=== PATIENT | male | born 1955 | race American Indian/Alaskan Native ===

== ENCOUNTER 2021-05-05 15:37 | Inpatient (IN) | payer MEDICAID ==
--- NOTE | 2021-05-05 17:40 | Event Note ---
ED Screening Note Date of service: 05/05/21 Time: 17:40 ED Screening Note: This initial assessment/diagnostic orders/clinical plan/treatment(s) is/are subject to change based on patients health status, clinical progression and re- assessment by fellow clinical providers in the ED. Further treatment and workup at subsequent clinical providers discretion. Patient/guardian urged not to elope from the ED as their condition may be serious if not clinically assessed and managed. Initial orders include: 65-year-old male complaining of pain and swelling to the right groin x4 days he denies fever he denies chills but he states that the pain has just been getting increasingly worst. Right groin with with pus draining, right perineal swelling and erythema right inner thigh with erythema and tenderness. He has a past medical history of [id number] diabetes and brain aneurysm he states he has noticed decreased urination over the last 4 days. labs ordered patient will need further evaluation and treatment
[2021-05-05 18:16] LABS: Hematocrit 42.5 % (35.5-45.6); Hemoglobin 14.5 gm/dl (11.8-15.2); Mean Corpuscular HGB Conc 34 % (32-34); Mean Corpuscular Volume 93 fl (84-94); Platelet Count 294 K/mm3 (140-440); Red Blood Count 4.58 M/mm3 (3.65-5.03); Red Cell Distribution Width 12.9 % (13.2-15.2)
[2021-05-05 18:34] LABS: Alanine Aminotransferase 44 units/L (7-56); Albumin 4.1 g/dL (3.9-5); Blood Urea Nitrogen 10 mg/dL (9-20); Hemolysis Index 4
[2021-05-05 18:47] LABS: BUN/Creatinine Ratio 14
[2021-05-05] MEDS ORDERED: SODIUM CHLORIDE 0.9% 1000 ML 1,000 ML IV ONE (18:50)
[2021-05-05] MEDS ORDERED: VANCOMYCIN PHARMACY TO DOSE IV SCH (19:00)
--- NOTE | 2021-05-05 19:06 | Emergency Department Report ---
<BRODY HOWARD - Last Filed: 05/05/21 19:03> - General Chief complaint: Skin/Abscess/Foreign Body Stated complaint: BOIL Time Seen by Provider: 05/05/21 18:16 Source: patient Mode of arrival: Ambulatory Limitations: No Limitations, Other - History of Present Illness Initial comments: Patient is a 65-year-old F [place] male with past medical history of diabetes who is presenting with swelling to his right groin. States that the area of of the right groin has been progressively worsening with swelling for the past 4 days. Denies fever nausea vomiting diarrhea or abdominal pain. Patient states he did feel a leaking sensation on the right inguinal area and down along his scrotum yesterday. Patient has no actual pain of his scrotum or any penile discharge. - Related Data Allergies Allergy/AdvReac Type Severity Reaction Status Date / Time No Known Allergies Allergy Verified 05/05/21 18:38 Abscess Boil HPI - HPI Chief Complaint: Skin/Abscess/Foreign Body Stated Complaint: BOIL Time Seen by Provider: 05/05/21 18:16 Allergies/Adverse Reactions: Allergies Allergy/AdvReac Type Severity Reaction Status Date / Time No Known Allergies Allergy Verified 05/05/21 18:38 ED Review of Systems Comment: All other systems reviewed and negative ED Past Medical Hx - Past Medical History Hx Diabetes: Yes Additional medical history: BRAIN ANEURRSYM - Surgical History Additional Surgical History: BRAIN/ HERNIA - Social History Smoking Status: Never Smoker Substance Use Type: None ED Physical Exam - General Limitations: No Limitations, Other General appearance: alert, in no apparent distress - Head Head exam: Present: atraumatic, normocephalic - Eye Eye exam: Present: normal appearance, PERRL, EOMI - ENT ENT exam: Present: mucous membranes moist - Neck Neck exam: Present: normal inspection - Respiratory Respiratory exam: Present: normal lung sounds bilaterally. Absent: respiratory distress, wheezes, rales, rhonchi - Cardiovascular Cardiovascular Exam: Present: regular rate, normal rhythm. Absent: systolic murmur, diastolic murmur, rubs, gallop - GI/Abdominal GI/Abdominal exam: Present: soft, normal bowel sounds. Absent: distended, tenderness, guarding, rebound - Rectal Rectal exam: Present: deferred - Expanded Exam Expanded Male exam: Absent: penile swelling image: 1 - Area of warmth induration and swelling. No obvious areas of fluctuance 2 - Along the right border of the scrotum along the thigh the patient does have some tenderness but no erythema - Extremities Exam Extremities exam: Present: normal inspection - Back Exam Back exam: Present: normal inspection - Neurological Exam Neurological exam: Present: alert, oriented X3 - Psychiatric Psychiatric exam: Present: normal affect, normal mood - Skin Skin exam: Present: warm, dry, intact, normal color. Absent: rash ED Medical Decision Making - Lab Data Result diagrams: 05/05/21 17:56 05/05/21 17:56 ED Disposition Clinical Impression: Cellulitis of scrotum, Abscess or cellulitis of groin Disposition: OP ADMIT IP TO THIS HOSP Condition: Stable Print Language: ANGUILLAN <SITA MATUTE - Last Filed: 05/05/21 21:47> ED Review of Systems ROS: Stated complaint: BOIL Other details as noted in HPI ED Course Vital Signs 05/05/21 05/05/21 05/05/21 15:37 19:38 19:47 Temperature 99.5 F 98.3 F Pulse Rate 96 H 84 Respiratory 20 16 16 Rate Blood Pressure 171/87 Blood Pressure 154/86 [Right] O2 Sat by Pulse 98 98 Oximetry 05/05/21 20:17 Temperature Pulse Rate Respiratory 16 Rate Blood Pressure Blood Pressure [Right] O2 Sat by Pulse Oximetry ED Medical Decision Making - Lab Data Result diagrams: 05/05/21 17:56 05/05/21 17:56 - Radiology Data Radiology results: report reviewed, image reviewed [facility] [address] [place] [address] Cat Scan Report Signed Patient: XANDER RUSH JR MR#: [id number] : 1955 Acct:[id number] Age/Sex: 65 / M ADM Date: 05/05/21 Loc: ED Attending Dr: Ordering Physician: BRODY HOWARD MD Date of Service: 05/05/21 Procedure(s): CT pelvis w con Accession Number(s): [id number] cc: BRODY HOWARD MD CT PELVIC WITH CONTRAST INDICATION: Right groin and possible scrotal/perineal abscess CONTRAST: 100 cc Omnipaque 300 IV COMPARISON: None available. All CT scans at this location are performed using CT dose reduction for ALARA by means of automated exposure control. FINDINGS: No intrapelvic masses or abnormal fluid collections are seen. No free fluid is seen within the pelvis. Urinary bladder, prostate, and seminal vesicles appear within normal limits. No obvious bowel abnormalities are seen. Prominent inflammatory change is seen extending from the upper right scrotal area proximally in the right peritoneum which includes significant soft tissue gas. I do not see a defined fluid collection to strongly suggest an abscess. The scrotum is not fully visualized but there appears to be a small right hydrocele. Gas is not seen in the scrotal though the scrotal soft tissues of an scrotal wall appear mildly edematous. The inflammatory process extends proximally lateral to the spermatic cord into the right inguinal area in its lower most portion along the musculature. There may be involvement of the muscular fascia with inflammation but I do not see obvious intramuscular inflammation or collection. No extension of this process into the true pelvis is identified. IMPRESSION: Prominent inflammatory process/cellulitis involving the upper right scrotum and lower right inguinal area as above without extension into the true pelvis. I do not see a defined abscess but this process may include anaerobic and/or necrotizing infection given the significant amount of soft tissue gas present. Signer Name: Car Velarde MD Signed: 05/05/2021 7:46 PM Workstation Name: [id number] Transcribed By: GJ Dictated By: Car Velarde MD Electronically Authenticated By: Car Velarde MD Signed Date/Time: 05/05/211945 DD/ 41 TD/TT: - Medical Decision Making I seen care of the patient from Dr. Brody Howard at shift change at 2000 hrs. The patient had presented with a complaint of right inguinal area pain and swelling for 4 days with purulent discharge. In the ED, patient is alert and oriented x3 and is not in any distress but appears to be in pain. Patient was treated in the ED for pain and also started on vancomycin and Zosyn as well as normal saline IV bolus in the ED. Lab test results were reviewed and showed leukocytosis of 23,900. Lactic acid is negative and the rest of the lab test results are nonactionable. The pelvis CT scan with contrast showed prominent inflammatory process/cellulitis involving the upper right scrotum and lower right inguinal area as above without extension into the true pelvis. I do not see a defined abscess but this process may include anaerobic and/or necrotizing infection given the significant amount of soft tissue gas present. The patient case was discussed with the hospitalist physician on-call Dr. Schwartz who admitted the patient to the hospital for further evaluation and antibiotics administration. - Differential Diagnosis Cellulitis; abscess; necrotizing fasciitis; folliculitis; hidradenitis Critical care attestation.: If time is entered above; I have spent that time in minutes in the direct care of this critically ill patient, excluding procedure time. ED Disposition Is pt being admited?: No Does the pt Need Aspirin: No Time of Disposition: 21:47
[2021-05-05] MEDS ORDERED: VANCOMYCIN 2,000 MG in SODIUM CHLORIDE 0.9% 500 ML 500 ML IV ONE (19:20)
[2021-05-05] MEDS ORDERED: KETOROLAC 30 MG/1 ML INJ IV ONE (19:23)
[2021-05-05] MEDS ORDERED: PIPERACIL/TAZOBACTA 4.5/NS 100 4.5 GM/100 ML VIAL IV ONE (19:30)
--- NOTE | 2021-05-05 19:51 | Cat Scan Report ---
CT PELVIC WITH CONTRAST INDICATION: Right groin and possible scrotal/perineal abscess CONTRAST: 100 cc Omnipaque 300 IV COMPARISON: None available. All CT scans at this location are performed using CT dose reduction for ALARA by means of automated e xposure control. FINDINGS: No intrapelvic masses or abnormal fluid collections are seen. No free fluid is seen within the pelvis. Urinary bladder, prostate, and seminal vesicles appear within normal limits. No obvious b owel abnormalities are seen. Prominent inflammatory change is seen extending from the upper right scrotal area proximally in the r ight peritoneum which includes significant soft tissue gas. I do not see a defined fluid collection t o strongly suggest an abscess. The scrotum is not fully visualized but there appears to be a small ri ght hydrocele. Gas is not seen in the scrotal though the scrotal soft tissues of an scrotal wall appe ar mildly edematous. The inflammatory process extends proximally lateral to the spermatic cord into t he right inguinal area in its lower most portion along the musculature. There may be involvement of t he muscular fascia with inflammation but I do not see obvious intramuscular inflammation or collectio n. No extension of this process into the true pelvis is identified. IMPRESSION: Prominent inflammatory process/cellulitis involving the upper right scrotum and lower rig ht inguinal area as above without extension into the true pelvis. I do not see a defined abscess but this process may include anaerobic and/or necrotizing infection given the significant amount of soft tissue gas present. Signer Name: Car Velarde MD Signed: 05/05/2021 7:46 PM Workstation Name: [id number]
[2021-05-05 20:07] LABS: Bilirubin,Urine NEG (Negative); Blood,Urine MOD (Negative); Color,Urine Yellow (Yellow); Mucus,Urine FEW /HPF
[2021-05-05] MEDS ORDERED: ONDANSETRON 4 MG/2 ML INJ IV PRN (21:46)
[2021-05-05] MEDS ORDERED: MAGNESIUM HYDROXIDE (MOM) ORAL LIQD UDC PO PRN (21:46)
[2021-05-05] MEDS ORDERED: ACETAMINOPHEN 325 MG TAB PO PRN ×2 (21:46→21:48)
[2021-05-05] MEDS ORDERED: DEXTROSE 50% IN WATER (25GM) 50 ML SYRINGE IV PRN (21:46)
--- NOTE | 2021-05-05 21:54 | History and Physical Report ---
History of Present Illness Date of examination: 05/05/21 Date of admission: 05/05/2021 Chief complaint: Right Inguinal Swelling History of present illness: 55-year-old -[place]ag[place] male with known history of diabetes mellitus presenting to the emergency room today complaining of right inguinal swelling. Swelling has been ongoing for the past 4 days and has been getting progressive. He denies any fever or chills, no chest pain or shortness of breath, no nausea vomiting, no abdominal pain, no hematuria or dysuria. Denies any injury or wound to the right groin. Denies any obvious drainage. Denies any scrotal swelling or pain and there is no penile discharge. Work-up in the emergency room today reveals leukocytosis of 24 and the rest of the lab is unremarkable. Pelvic CT reveals inflammatory process/cellulitis involving the right scrotum and right lower inguinal area. Patient is being admitted with cellulitis of the right inguinal region. Past History Past Medical History: diabetes Past Surgical History: Other (Brain aneurysm) Social history: no significant social history Family history: no significant family history Medications and Allergies Allergies Allergy/AdvReac Type Severity Reaction Status Date / Time No Known Allergies Allergy Verified 05/05/21 18:38 Home Medications Medication Instructions Recorded Confirmed Last Taken Type Acetaminophen [Tylenol] 650 mg PO Q6H PRN 05/06/21 05/06/21 05/05/21 History Famotidine [Pepcid] 20 mg PO DAILY 05/06/21 05/06/21 05/05/21 History amLODIPine 5 mg PO DAILY 05/06/21 05/06/21 05/05/21 History levETIRAcetam [Keppra TAB] 500 mg PO BID 05/06/21 05/06/21 05/05/21 History metFORMIN [Glucophage] 500 mg PO BID 05/06/21 05/06/21 05/05/21 History Active Meds: Active Medications Vancomycin HCl 2,000 mg/ (Sodium Chloride) 540 mls @ 250 mls/hr IV Q12H SUNDAR Review of Systems Constitutional: no fever, no chills Ears, nose, mouth and throat: no nasal congestion, no sore throat Cardiovascular: no chest pain, no palpitations Respiratory: no cough, no shortness of breath Gastrointestinal: no abdominal pain, no nausea, no vomiting, no diarrhea Genitourinary Male: no dysuria, no hematuria, no flank pain Musculoskeletal: no neck pain, no low back pain Integumentary: no rash, no pruritis Neurological: no headaches, no confusion Psychiatric: no anxiety, no depression Endocrine: no polydipsia, no polyuria, no nocturia Exam - Constitutional Vitals: Temp Pulse Resp BP Pulse Ox 98.3 F 84 16 154/86 98 05/05/21 19:38 05/05/21 19:38 05/05/21 20:17 05/05/21 19:38 05/05/21 19:38 General appearance: Present: no acute distress, well-nourished - EENT Eyes: Present: PERRL, EOM intact. Absent: scleral icterus ENT: hearing intact, clear oral mucosa, dentition normal - Neck Neck: Present: supple, normal ROM - Respiratory Respiratory effort: normal Respiratory: bilateral: CTA - Cardiovascular Rhythm: regular Heart Sounds: Present: S1 & S2. Absent: gallop, systolic murmur, diastolic murmur, rub, click - Extremities Extremities: no ischemia, pulses intact, pulses symmetrical, No edema, normal temperature, normal color, Full ROM Peripheral Pulses: within normal limits - Abdominal General gastrointestinal: Present: soft, non-tender, non-distended, normal bowel sounds. Absent: mass - Integumentary Integumentary: Present: clear, warm, dry. Absent: rash - Musculoskeletal Musculoskeletal: strength equal bilaterally - Psychiatric Psychiatric: appropriate mood/affect, intact judgment & insight, memory intact, cooperative - Neurologic Neurologic: CNII-XII intact, no focal deficits, moves all extremities Results - Labs CBC & Chem 7: 05/06/21 07:53 05/06/21 07:53 Labs: Abnormal lab results 05/05/21 05/05/21 05/05/21 Range/Units 17:56 17:56 Unknown WBC 23.9 H (4.5-11.0) K/mm3 RDW 12.9 L (13.2-15.2) % Chloride 95.4 L (98-107) mmol/L Creatinine 0.7 L (0.8-1.3) mg/dL Glucose 152 H (75-100) mg/dL Alkaline Phosphatase 139 H (35-129) units/L Ur Specific [place] 1.035 H (1.003-1.030) Assessment and Plan - Patient Problems (1) Abscess or cellulitis of groin Current Visit: Yes Status: Acute Plan to address problem: Patient placed on empiric IV antibiotics. Will await surgical evaluation and wound care. (2) Diabetes mellitus Current Visit: Yes Status: Acute Plan to address problem: We will monitor Accu-Cheks closely. Patient placed on sliding scale insulin. (3) DVT prophylaxis Current Visit: Yes Status: Acute Plan to address problem: Patient placed on subcutaneous heparin. (4) Full code status Current Visit: Yes Status: Acute Plan to address problem: Patient is full code.
[2021-05-05] MEDS: HEPARIN 5,000 UNIT/1 ML VIAL SUB-Q SCH (22:26)
[2021-05-05] MEDS: INSULIN REGULAR, HUMAN 100 UNITS/1 ML SUB-Q SCH (22:31)
[2021-05-06] MEDS ORDERED: VANCOMYCIN PHARMACY TO DOSE IV SCH (01:00)
[2021-05-06] MEDS: PIPERACIL/TAZOBACTA 4.5/NS 100 4.5 GM/100 ML VIAL IV SCH ×3 (05:26→21:22)
[2021-05-06] MEDS: HEPARIN 5,000 UNIT/1 ML VIAL SUB-Q SCH ×3 (05:27→21:22)
[2021-05-06] MEDS: MORPHINE 4 MG/1 ML INJ IV PRN (06:28)
[2021-05-06] MEDS: SODIUM CHLORIDE 0.9% 1000 ML 1,000 ML IV SCH ×2 (06:33→21:23)
[2021-05-06] MEDS ORDERED: VANCOMYCIN 2,000 MG in SODIUM CHLORIDE 0.9% 500 ML 500 ML IV SCH (08:00)
[2021-05-06 08:32] LABS: Basophils % (Auto) 0.2 % (0.0-1.8); Eosinophils # (Auto) 0.2 K/mm3 (0.0-0.4); Hematocrit 39.1 % (35.5-45.6); Hemoglobin 13.4 gm/dl (11.8-15.2); Lymphocytes # (Auto) 1.9 K/mm3 (1.2-5.4); Lymphocytes % (Auto) 10.4 % (13.4-35.0); Mean Corpuscular HGB Conc 34 % (32-34); Mean Corpuscular Volume 93 fl (84-94); Monocytes # (Auto) 2.4 K/mm3 (0.0-0.8); Monocytes % (Auto) 13.1 % (0.0-7.3); Platelet Count 268 K/mm3 (140-440); Red Blood Count 4.22 M/mm3 (3.65-5.03)
[2021-05-06 08:36] LABS: Blood Urea Nitrogen 8 mg/dL (9-20); Calcium 9.2 mg/dL (8.4-10.2); Hemolysis Index 0
[2021-05-06 08:42] LABS: BUN/Creatinine Ratio 16; INR 0.93 (0.87-1.13)
[2021-05-06] MEDS: INSULIN REGULAR, HUMAN 100 UNITS/1 ML SUB-Q SCH ×4 (10:03→21:50)
--- NOTE | 2021-05-06 12:57 | Progress Note ---
Assessment and Plan Assessment and plan: 55-year-old -[place] male with known history of diabetes mellitus presenting to the emergency room today complaining of right inguinal swelling. Swelling has been ongoing for the past 4 days and has been getting progressive. He denies any fever or chills, no chest pain or shortness of breath, no nausea vomiting, no abdominal pain, no hematuria or dysuria. Denies any injury or wound to the right groin. Denies any obvious drainage. Denies any scrotal swelling or pain and there is no penile discharge. Work-up in the emergency room today reveals leukocytosis of 24 and the rest of the lab is unremarkable. Pelvic CT reveals inflammatory process/cellulitis involving the right scrotum and right lower inguinal area. Patient is being admitted with cellulitis of the right inguinal region. (1) Abscess or cellulitis of groin ?Narcotizing fasciitis Current Visit: Yes Status: Acute (2) Diabetes mellitus Current Visit: Yes Status: Acute (3) Hypokalemia (5) DVT prophylaxis Current Visit: Yes Status: Acute (6) Full code status Current Visit: Yes Status: Acute Plan: Continue supportive care, wound care consult. continue abx, awaiting surgical eval. History Interval history: Patient seen and examined resting comfortably no new complaints at this time. Hospitalist Physical - Physical exam Narrative exam: VITAL SIGNS: Reviewed. GENERAL: The patient appears normally developed, morbidly obese vital signs as documented. HEAD: No signs of head trauma. EYES: Pupils are equal. Extraocular motions intact. EARS: Hearing grossly intact. MOUTH: Oropharynx is normal. NECK: No adenopathy, no JVD. CHEST: Chest with clear breath sounds bilaterally. No wheezes, rales, or rhonchi. CARDIAC: Regular rate and rhythm. S1 and S2, without murmurs, gallops, or rubs. VASCULAR: No Edema. Peripheral pulses normal and equal in all extremities. ABDOMEN: Soft, non tender and non distended. No rebound or guarding, and no masses palpated. Bowel Sounds normal. MUSCULOSKELETAL: Good range of motion of all major joints. Extremities without clubbing, cyanosis or edema. : Area of warmth induration and swelling. No obvious areas of fluctuance, Along the right border of the scrotum along the thigh the patient does have some tenderness but no erythema. Some dressing in place NEUROLOGIC EXAM: Alert and oriented x 3 No focal sensory or strength deficits. Speech normal. Follows commands. PSYCHIATRIC: Mood normal. SKIN: Indurated area in the groin detail exam as documented in skin assessment - Constitutional Vitals: Temp Pulse Resp BP Pulse Ox 97.6 F 91 H 18 170/82 92 05/06/21 03:52 05/06/21 03:52 05/06/21 03:52 05/06/21 03:52 05/06/21 03:52 General appearance: Present: no acute distress, well-nourished Results - Labs CBC & Chem 7: 05/06/21 07:53 05/06/21 07:53 Labs: Laboratory Last Values WBC 18.2 K/mm3 (4.5-11.0) H 05/06/21 07:53 RBC 4.22 M/mm3 (3.65-5.03) 05/06/21 07:53 Hgb 13.4 gm/dl (11.8-15.2) 05/06/21 07:53 Hct 39.1 % (35.5-45.6) 05/06/21 07:53 MCV 93 fl (84-94) 05/06/21 07:53 MCH 32 pg (28-32) 05/06/21 07:53 MCHC 34 % (32-34) 05/06/21 07:53 RDW 13.0 % (13.2-15.2) L 05/06/21 07:53 Plt Count 268 K/mm3 (140-440) 05/06/21 07:53 Lymph % (Auto) 10.4 % (13.4-35.0) L 05/06/21 07:53 [place] % (Auto) 13.1 % (0.0-7.3) H 05/06/21 07:53 Eos % (Auto) 1.0 % (0.0-4.3) 05/06/21 07:53 Baso % (Auto) 0.2 % (0.0-1.8) 05/06/21 07:53 Lymph # (Auto) 1.9 K/mm3 (1.2-5.4) 05/06/21 07:53 [place] # (Auto) 2.4 K/mm3 (0.0-0.8) H 05/06/21 07:53 Eos # (Auto) 0.2 K/mm3 (0.0-0.4) 05/06/21 07:53 Baso # (Auto) 0.0 K/mm3 (0.0-0.1) 05/06/21 07:53 Seg Neutrophils % 75.3 % (40.0-70.0) H 05/06/21 07:53 Seg Neutrophils # 13.7 K/mm3 (1.8-7.7) H 05/06/21 07:53 PT 13.1 Sec. (12.2-14.9) 05/06/21 07:53 INR 0.93 (0.87-1.13) 05/06/21 07:53 Sodium 141 mmol/L (137-145) 05/06/21 07:53 Potassium 3.1 mmol/L (3.6-5.0) L 05/06/21 07:53 Chloride 100.7 mmol/L (98-107) 05/06/21 07:53 Carbon Dioxide 30 mmol/L (22-30) 05/06/21 07:53 Anion Gap 13 mmol/L 05/06/21 07:53 BUN 8 mg/dL (9-20) L 05/06/21 07:53 Creatinine 0.5 mg/dL (0.8-1.3) L 05/06/21 07:53 Estimated GFR > 60 ml/min 05/06/21 07:53 BUN/Creatinine Ratio 16 % 05/06/21 07:53 Glucose 147 mg/dL (75-100) H 05/06/21 07:53 POC Glucose 163 mg/dL (70-105) H 05/06/21 11:47 Lactic Acid 1.20 mmol/L (0.7-2.0) 05/05/21 21:27 Calcium 9.2 mg/dL (8.4-10.2) 05/06/21 07:53 Total Bilirubin 0.50 mg/dL (0.1-1.2) 05/05/21 17:56 AST 31 units/L (5-40) 05/05/21 17:56 ALT 44 units/L (7-56) 05/05/21 17:56 Alkaline Phosphatase 139 units/L (35-129) H 05/05/21 17:56 Total Protein 7.4 g/dL (6.3-8.2) 05/05/21 17:56 Albumin 4.1 g/dL (3.9-5) 05/05/21 17:56 Albumin/Globulin Ratio 1.2 % 05/05/21 17:56 Urine Color Yellow (Yellow) 05/05/21 Unknown Urine Turbidity Clear (Clear) 05/05/21 Unknown Urine pH 5.0 (5.0-7.0) 05/05/21 Unknown Ur Specific [place] 1.035 (1.003-1.030) H 05/05/21 Unknown Urine Protein 100 mg/dl mg/dL (Negative) 05/05/21 Unknown Urine Glucose (UA) Neg mg/dL (Negative) 05/05/21 Unknown Urine Ketones 20 mg/dL (Negative) 05/05/21 Unknown Urine Blood Mod (Negative) 05/05/21 Unknown Urine Nitrite Neg (Negative) 05/05/21 Unknown Urine Bilirubin Neg (Negative) 05/05/21 Unknown Urine Urobilinogen 2.0 mg/dL (<2.0) 05/05/21 Unknown Ur Leukocyte Esterase Neg (Negative) 05/05/21 Unknown Urine WBC (Auto) 1.0 /HPF (0.0-6.0) 05/05/21 Unknown Urine RBC (Auto) 2.0 /HPF (0.0-6.0) 05/05/21 Unknown Urine Mucus Few /HPF 05/05/21 Unknown Microbiology: Microbiology 05/05/21 18:04 Peripheral/Venous Blood Culture - Preliminary Culture in Progress 05/05/21 17:56 Peripheral/Venous Blood Culture - Preliminary Culture in Progress Stokes/IV: Voiding Method Urinal Active Medications - Current Medications Current Medications: Generic Name Dose Route Start Last Admin Trade Name Freq PRN Reason Stop Dose Admin Acetaminophen 650 mg 05/05/21 21:48 Acetaminophen 325 Mg Tab PO Q4H PRN Pain MILD(1-3)/Fever >100.5/MYERS Dextrose 0 ml 05/05/21 21:46 Dextrose 50% In Water (25gm) 50 Ml Syringe IV Q30MIN PRN Hypoglycemia Protocol Heparin Sodium (Porcine) 5,000 unit 05/05/21 22:00 05/06/21 05:27 Heparin 5,000 Unit/1 Ml Vial SUB-Q 5,000 unit Q8HR SUNDAR Administration Sodium Chloride 1,000 mls @ 125 mls/hr 05/05/21 22:00 05/06/21 06:33 Nacl 0.9% 1000 Ml IV 125 mls/hr DIRECT SUNDAR Administration Piperacillin Sod/Tazobactam Sod 4.5 gm in 100 mls @ 200 mls/hr 05/06/21 06:00 05/06/21 05:26 Zosyn/Ns 4.5gm/100ml IV 200 mls/hr Q8H SUNDAR Administration Protocol Vancomycin HCl 1,500 mg/ 530 mls @ 333.333 mls/hr 05/06/21 20:00 Sodium Chloride IV Q12H SUNDAR Insulin Human Regular 0 units 05/05/21 22:00 05/06/21 10:03 Insulin Regular, Human 100 Units/1 Ml SUB-Q 2 units ACHS SUNDAR Administration Protocol Magnesium Hydroxide 30 ml 05/05/21 21:46 Magnesium Hydroxide (Mom) Oral Liqd Udc PO Q4H PRN Constipation Morphine Sulfate 2 mg 05/05/21 21:46 Morphine 2 Mg/1 Ml Inj IV Q4H PRN Pain, Moderate (4-6) Morphine Sulfate 4 mg 05/05/21 21:46 05/06/21 06:28 Morphine 4 Mg/1 Ml Inj IV 4 mg Q4H PRN Administration Pain , Severe (7-10) Ondansetron HCl 4 mg 05/05/21 21:48 Ondansetron 4 Mg/2 Ml Inj IV Q8H PRN Nausea And Vomiting Oxycodone/Acetaminophen 1 tab 05/05/21 21:48 Oxycodone /Acetaminophen 5-325mg Tab PO Q6H PRN Pain, Moderate (4-6) Sodium Chloride 10 ml 05/05/21 22:00 05/06/21 10:04 Sodium Chloride 0.9% 10 Ml Flush Syringe IV 10 ml BID SUNDAR Administration Sodium Chloride 10 ml 05/05/21 21:48 Sodium Chloride 0.9% 10 Ml Flush Syringe IV PRN PRN LINE FLUSH Nutrition/Malnutrition Assess - Dietary Evaluation Nutrition/Malnutrition Findings: Nutrition Notes Start: 05/06/21 12:25 Freq: Status: Active Protocol: Document 05/06/21 12:26 ISAK (Rec: 05/06/21 12:32 ISAK [id number]) Nutrition Notes Need for Assessment generated from: MD Order,Education Initial or Follow up Assessment Current Diagnosis Diabetes Other Pertinent Diagnosis abscess or cellulitis of groin Current Diet Consistent CHO Labs/Tests K 3.1 BG 147 Pertinent Medications NS at 125 ml/hr Height 5 ft 9 in Weight 104.326 kg Usual Body Weight 105.9 kg [place] Body Weight (kg) 72.72 BMI 34.0 Intake Prior to Admission Fair Weight change and time frame 1.5% wt loss in 3-4 days Weight Status Obese Subjective/Other Information MD consult for diet education. Gave pt DM diet education. All questions answered. Pt eating 50% of meals due to decreased appetite for 3-4 days. Burn Absent Trauma Absent GI Symptoms None Current % PO Poor (25-49%) Minimum of two criteria No Interpretation of Weight Loss (non- 1-2% in 1 week severe) #2 Nutrition Diagnosis Food and nutrition-related knowledge deficit Etiology no prior DM education As Evidenced by Signs and Symptoms pt had questions about food with carbs #1 Nutrition Diagnosis Inadequate oral intake Etiology pain As Evidenced by Signs and Symptoms pt eating 50% of meals Is patient on ventilator? No Is Patient Ambulatory and/or Out of Bed No REE-([place]-confined to bed) 2193.252 Kcal/Kg value to use for calculation 16 Approximate Energy Requirements Using 1669 kcal/Kg Calculation Used for Recommendations Kcal/kg Additional Notes Protein: (0.8-1g/kg AdjBW: 89kg) 71-89g Fluid: 1 ml/kcal Nutrition Intervention Change Diet Order: continue Add Supplement/Snack (indicate name/kcal Glucerna BID /protein ) Provides kCal: 440 Provides Protein (gm) 20 Teaching Recipient Patient Learning Readiness Good Teaching Methods Discussion,Handout Response to Teaching Verbalize understanding Education Handouts Provided Carb Counting Label Reading Tips Barriers to Learning No Barriers RD phone number provided Yes Patient aware of follow up options Yes Goal #1 Meet at least 75% of energy and protein needs via PO and ONS Anticipated Discharge Needs: consistent CHO Follow-Up By: 05/08/21 Additional Comments FU for intakes and ONS tolerance
[2021-05-06] MEDS: MORPHINE 2 MG/1 ML INJ IV PRN (18:44)
[2021-05-06] MEDS: VANCOMYCIN 1,500 MG in SODIUM CHLORIDE 0.9% 500 ML 500 ML IV SCH (21:21)
[2021-05-06] MEDS: ONDANSETRON 4 MG/2 ML INJ IV PRN (21:51)
[2021-05-07] MEDS: HEPARIN 5,000 UNIT/1 ML VIAL SUB-Q SCH ×3 (05:50→21:18)
[2021-05-07] MEDS: PIPERACIL/TAZOBACTA 4.5/NS 100 4.5 GM/100 ML VIAL IV SCH ×2 (05:50→14:00)
[2021-05-07] MEDS: SODIUM CHLORIDE 0.9% 1000 ML 1,000 ML IV SCH ×2 (05:52→21:18)
[2021-05-07 07:17] LABS: Hematocrit 38.6 % (35.5-45.6); Hemoglobin 13.3 gm/dl (11.8-15.2); Mean Corpuscular HGB Conc 34 % (32-34); Mean Corpuscular Volume 93 fl (84-94); Platelet Count 275 K/mm3 (140-440); Red Blood Count 4.17 M/mm3 (3.65-5.03)
[2021-05-07 08:00] LABS: Blood Urea Nitrogen 5 mg/dL (9-20); Calcium 9.2 mg/dL (8.4-10.2); Hemolysis Index 8
[2021-05-07 08:07] LABS: BUN/Creatinine Ratio 10
[2021-05-07] MEDS: INSULIN REGULAR, HUMAN 100 UNITS/1 ML SUB-Q SCH ×4 (08:09→22:29)
[2021-05-07] MEDS: MORPHINE 4 MG/1 ML INJ IV PRN (08:18)
[2021-05-07] MEDS: VANCOMYCIN 1,500 MG in SODIUM CHLORIDE 0.9% 500 ML 500 ML IV SCH ×2 (08:19→20:27)
--- NOTE | 2021-05-07 08:28 | Consultation ---
History of Present Illness Consult date: 05/07/21 Chief complaint: abscess - History of present illness History of present illness: 65 yo M with hx of DM who presented to [facility] due to worsening swelling, pain, and drainage from his right groin area. Patient states it was going on for about 2 days and started off as a small boil. This subsequently got worse and came to a head and then started drainage. The area is tender. He states he may have had one fever at home. He has never had anything like this in the past. Tm 99.9. Surgery is asked to evaluate patient for right groin abscess/cellulitis. Past History Past Medical History: diabetes, other (brain aneurysm, hernia) Past Surgical History: Other (Brain aneurysm, hernia surgeryx2, tracheostomy) Social history: no significant social history Family history: no significant family history Medications and Allergies Allergies Allergy/AdvReac Type Severity Reaction Status Date / Time No Known Allergies Allergy Verified 05/05/21 18:38 Home Medications Medication Instructions Recorded Confirmed Last Taken Type Acetaminophen [Tylenol] 650 mg PO Q6H PRN 05/06/21 05/06/21 05/05/21 History Famotidine [Pepcid] 20 mg PO DAILY 05/06/21 05/06/21 05/05/21 History amLODIPine 5 mg PO DAILY 05/06/21 05/06/21 05/05/21 History levETIRAcetam [Keppra TAB] 500 mg PO BID 05/06/21 05/06/21 05/05/21 History metFORMIN [Glucophage] 500 mg PO BID 05/06/21 05/06/21 05/05/21 History Active Meds: Active Medications Acetaminophen (Acetaminophen 325 Mg Tab) 650 mg PO Q4H PRN PRN Reason: Pain MILD(1-3)/Fever >100.5/MYERS Dextrose (Dextrose 50% In Water (25gm) 50 Ml Syringe) 0 ml IV Q30MIN PRN; Michael col PRN Reason: Hypoglycemia Heparin Sodium (Porcine) (Heparin 5,000 Unit/1 Ml Vial) 5,000 unit SUB-Q Q8HR SUNDAR Last Admin: 05/07/21 05:50 Dose: 5,000 unit Documented by: Sodium Chloride (Nacl 0.9% 1000 Ml) 1,000 mls @ 125 mls/hr IV DIRECT SUNDAR Last Admin: 05/07/21 05:52 Dose: 125 mls/hr Documented by: Piperacillin Sod/Tazobactam Sod (Zosyn/Ns 4.5gm/100ml) 4.5 gm in 100 mls @ 200 mls/hr IV Q8H SUNDAR; Protocol Last Infusion: 05/07/21 07:16 Dose: Infused Documented by: Vancomycin HCl 1,500 mg/ (Sodium Chloride) 530 mls @ 333.333 mls/hr IV Q12H SUNDAR Last Admin: 05/07/21 08:19 Dose: 333.333 mls/hr Documented by: Insulin Human Regular (Insulin Regular, Human 100 Units/1 Ml) 0 units SUB-Q ACHS SUNDAR; Protocol Last Admin: 05/07/21 08:09 Dose: Not Given Documented by: Magnesium Hydroxide (Magnesium Hydroxide (Mom) Oral Liqd Udc) 30 ml PO Q4H PRN PRN Reason: Constipation Morphine Sulfate (Morphine 2 Mg/1 Ml Inj) 2 mg IV Q4H PRN PRN Reason: Pain, Moderate (4-6) Last Admin: 05/06/21 18:44 Dose: 2 mg Documented by: Morphine Sulfate (Morphine 4 Mg/1 Ml Inj) 4 mg IV Q4H PRN PRN Reason: Pain , Severe (7-10) Last Admin: 05/07/21 08:18 Dose: 4 mg Documented by: Ondansetron HCl (Ondansetron 4 Mg/2 Ml Inj) 4 mg IV Q8H PRN PRN Reason: Nausea And Vomiting Last Admin: 05/06/21 21:51 Dose: 4 mg Documented by: Oxycodone/Acetaminophen (Oxycodone /Acetaminophen 5-325mg Tab) 1 tab PO Q6H PRN PRN Reason: Pain, Moderate (4-6) Sodium Chloride (Sodium Chloride 0.9% 10 Ml Flush Syringe) 10 ml IV BID SUNDAR Last Admin: 05/06/21 21:24 Dose: 10 ml Documented by: Sodium Chloride (Sodium Chloride 0.9% 10 Ml Flush Syringe) 10 ml IV PRN PRN PRN Reason: LINE FLUSH Review of Systems All systems: negative (10 pt ROS performed and negative except for that listed in HPI) Exam Vital Signs Temp Pulse Resp BP Pulse Ox 99.5 F 96 H 20 171/87 98 05/05/21 15:37 05/05/21 15:37 05/05/21 15:37 05/05/21 15:37 05/05/21 15:37 Narrative exam: Gen; AAOx3. NAD ENT: no scleral icterus or conjunctival pallor. Well healed midline anterior neck scar CV: s1, S2+ Resp: even and unlabored Abd: soft, NT. Well healed surgical scars Ext: R groin induration with foul smelling purulent drainage on skin. Skin opening hard to identify due to patient's body habitus/pannus. Results - Labs 05/07/21 06:50 05/07/21 06:50 Abnormal lab results 05/06/21 05/06/21 05/06/21 Range/Units 07:53 07:53 08:46 WBC 18.2 H (4.5-11.0) K/mm3 RDW 13.0 L (13.2-15.2) % Lymph % (Auto) 10.4 L (13.4-35.0) % [place] % (Auto) 13.1 H (0.0-7.3) % [place] # (Auto) 2.4 H (0.0-0.8) K/mm3 Seg Neutrophils % 75.3 H (40.0-70.0) % Seg Neutrophils # 13.7 H (1.8-7.7) K/mm3 Potassium 3.1 L (3.6-5.0) mmol/L BUN 8 L (9-20) mg/dL Creatinine 0.5 L (0.8-1.3) mg/dL Glucose 147 H (75-100) mg/dL POC Glucose 167 H (70-105) mg/dL 05/06/21 05/06/21 05/06/21 Range/Units 11:47 17:26 21:33 WBC (4.5-11.0) K/mm3 RDW (13.2-15.2) % Lymph % (Auto) (13.4-35.0) % [place] % (Auto) (0.0-7.3) % [place] # (Auto) (0.0-0.8) K/mm3 Seg Neutrophils % (40.0-70.0) % Seg Neutrophils # (1.8-7.7) K/mm3 Potassium (3.6-5.0) mmol/L BUN (9-20) mg/dL Creatinine (0.8-1.3) mg/dL Glucose (75-100) mg/dL POC Glucose 163 H 194 H 156 H (70-105) mg/dL 05/07/21 05/07/21 05/07/21 Range/Units 06:50 06:50 08:01 WBC 14.8 H (4.5-11.0) K/mm3 RDW 13.0 L (13.2-15.2) % Lymph % (Auto) (13.4-35.0) % [place] % (Auto) (0.0-7.3) % [place] # (Auto) (0.0-0.8) K/mm3 Seg Neutrophils % (40.0-70.0) % Seg Neutrophils # (1.8-7.7) K/mm3 Potassium (3.6-5.0) mmol/L BUN 5 L (9-20) mg/dL Creatinine 0.5 L (0.8-1.3) mg/dL Glucose 163 H (75-100) mg/dL POC Glucose 169 H (70-105) mg/dL Diabetes panel 05/06/21 05/07/21 Range/Units 07:53 06:50 Sodium 141 138 (137-145) mmol/L Potassium 3.1 L 3.6 (3.6-5.0) mmol/L Chloride 100.7 99.6 (98-107) mmol/L Carbon Dioxide 30 28 (22-30) mmol/L BUN 8 L 5 L (9-20) mg/dL Creatinine 0.5 L 0.5 L (0.8-1.3) mg/dL Glucose 147 H 163 H (75-100) mg/dL Calcium 9.2 9.2 (8.4-10.2) mg/dL Calcium panel 05/06/21 05/07/21 Range/Units 07:53 06:50 Calcium 9.2 9.2 (8.4-10.2) mg/dL Pituitary panel 05/06/21 05/07/21 Range/Units 07:53 06:50 Sodium 141 138 (137-145) mmol/L Potassium 3.1 L 3.6 (3.6-5.0) mmol/L Chloride 100.7 99.6 (98-107) mmol/L Carbon Dioxide 30 28 (22-30) mmol/L BUN 8 L 5 L (9-20) mg/dL Creatinine 0.5 L 0.5 L (0.8-1.3) mg/dL Glucose 147 H 163 H (75-100) mg/dL Calcium 9.2 9.2 (8.4-10.2) mg/dL Adrenal panel 05/06/21 05/07/21 Range/Units 07:53 06:50 Sodium 141 138 (137-145) mmol/L Potassium 3.1 L 3.6 (3.6-5.0) mmol/L Chloride 100.7 99.6 (98-107) mmol/L Carbon Dioxide 30 28 (22-30) mmol/L BUN 8 L 5 L (9-20) mg/dL Creatinine 0.5 L 0.5 L (0.8-1.3) mg/dL Glucose 147 H 163 H (75-100) mg/dL Calcium 9.2 9.2 (8.4-10.2) mg/dL - Imaging CT scan - pelvis: report reviewed, image reviewed Assessment and Plan 65 yo M with 1. Right groin abscess with concerns for necrotizing infection on CT scan 2. Sepsis 2/2 #1 3. Diabetes Plan: 1. NPO 2. IVF 3. IV abx 4. check HbA1C. Strict glucose control 5. prn pain control 6. Will need I&D, debridement of right groin/perineum. Explained to patient that is likely a necrotizing infection which result in large open wound, multiple trips to OR, and pain. He understands and is agreeable to proceed with surgery. Consent obtained and patient to go to OR today as soon as possible. If scrotum is involved, he will need a urology consult. Thank you, please call with questions.
--- NOTE | 2021-05-07 12:00 | Progress Note ---
Assessment and Plan Assessment and plan: 55-year-old -[place] male with known history of diabetes mellitus presenting to the emergency room today complaining of right inguinal swelling. Swelling has been ongoing for the past 4 days and has been getting progressive. He denies any fever or chills, no chest pain or shortness of breath, no nausea vomiting, no abdominal pain, no hematuria or dysuria. Denies any injury or wound to the right groin. Denies any obvious drainage. Denies any scrotal swelling or pain and there is no penile discharge. Work-up in the emergency room today reveals leukocytosis of 24 and the rest of the lab is unremarkable. Pelvic CT reveals inflammatory process/cellulitis involving the right scrotum and right lower inguinal area. Patient is being admitted with cellulitis of the right inguinal region. 05/07: Patient continues to do well today. Continue antibiotics. ID consulted. Patient was seen by general surgery yesterday and part of recommendation includes "Will need I&D, debridement of right groin/perineum. Explained to patient that is likely a necrotizing infection which result in large open wound, multiple trips to OR, and pain. He understands and is agreeable to proceed with surgery. Consent obtained and patient to go to OR today as soon as possible. If scrotum is involved, he will need a urology consult." We will continue to follow and await further management plan. (1) Abscess or cellulitis of groin ?Narcotizing fasciitis Current Visit: Yes Status: Acute (2) Diabetes mellitus Current Visit: Yes Status: Acute (3) Hypokalemia (5) DVT prophylaxis Current Visit: Yes Status: Acute (6) Full code status Current Visit: Yes Status: Acute Plan: Continue supportive care, wound care consult. continue abx, History Interval history: Patient seen and examined resting comfortably no new complaints at this time. Hospitalist Physical - Physical exam Narrative exam: VITAL SIGNS: Reviewed. GENERAL: The patient appears normally developed, morbidly obese vital signs as documented. HEAD: No signs of head trauma. EYES: Pupils are equal. Extraocular motions intact. EARS: Hearing grossly intact. MOUTH: Oropharynx is normal. NECK: No adenopathy, no JVD. CHEST: Chest with clear breath sounds bilaterally. No wheezes, rales, or rhonchi. CARDIAC: Regular rate and rhythm. S1 and S2, without murmurs, gallops, or rubs. VASCULAR: No Edema. Peripheral pulses normal and equal in all extremities. ABDOMEN: Soft, non tender and non distended. No rebound or guarding, and no masses palpated. Bowel Sounds normal. MUSCULOSKELETAL: Good range of motion of all major joints. Extremities without clubbing, cyanosis or edema. : Area of warmth induration and swelling. No obvious areas of fluctuance, Along the right border of the scrotum along the thigh the patient does have some tenderness but no erythema. Some dressing in place NEUROLOGIC EXAM: Alert and oriented x 3 No focal sensory or strength deficits. Speech normal. Follows commands. PSYCHIATRIC: Mood normal. SKIN: Indurated area in the groin detail exam as documented in skin assessment - Constitutional Vitals: Temp Pulse Resp BP Pulse Ox 96.9 F L 75 16 154/81 98 05/07/21 07:17 05/07/21 07:17 05/07/21 07:17 05/07/21 07:17 05/07/21 07:17 General appearance: Present: no acute distress, well-nourished Results - Labs CBC & Chem 7: 05/07/21 06:50 05/07/21 06:50 Labs: Laboratory Last Values WBC 14.8 K/mm3 (4.5-11.0) H 05/07/21 06:50 RBC 4.17 M/mm3 (3.65-5.03) 05/07/21 06:50 Hgb 13.3 gm/dl (11.8-15.2) 05/07/21 06:50 Hct 38.6 % (35.5-45.6) 05/07/21 06:50 MCV 93 fl (84-94) 05/07/21 06:50 MCH 32 pg (28-32) 05/07/21 06:50 MCHC 34 % (32-34) 05/07/21 06:50 RDW 13.0 % (13.2-15.2) L 05/07/21 06:50 Plt Count 275 K/mm3 (140-440) 05/07/21 06:50 Lymph % (Auto) 10.4 % (13.4-35.0) L 05/06/21 07:53 [place] % (Auto) 13.1 % (0.0-7.3) H 05/06/21 07:53 Eos % (Auto) 1.0 % (0.0-4.3) 05/06/21 07:53 Baso % (Auto) 0.2 % (0.0-1.8) 05/06/21 07:53 Lymph # (Auto) 1.9 K/mm3 (1.2-5.4) 05/06/21 07:53 [place] # (Auto) 2.4 K/mm3 (0.0-0.8) H 05/06/21 07:53 Eos # (Auto) 0.2 K/mm3 (0.0-0.4) 05/06/21 07:53 Baso # (Auto) 0.0 K/mm3 (0.0-0.1) 05/06/21 07:53 Seg Neutrophils % 75.3 % (40.0-70.0) H 05/06/21 07:53 Seg Neutrophils # 13.7 K/mm3 (1.8-7.7) H 05/06/21 07:53 PT 13.1 Sec. (12.2-14.9) 05/06/21 07:53 INR 0.93 (0.87-1.13) 05/06/21 07:53 Sodium 138 mmol/L (137-145) 05/07/21 06:50 Potassium 3.6 mmol/L (3.6-5.0) 05/07/21 06:50 Chloride 99.6 mmol/L (98-107) 05/07/21 06:50 Carbon Dioxide 28 mmol/L (22-30) 05/07/21 06:50 Anion Gap 14 mmol/L 05/07/21 06:50 BUN 5 mg/dL (9-20) L 05/07/21 06:50 Creatinine 0.5 mg/dL (0.8-1.3) L 05/07/21 06:50 Estimated GFR > 60 ml/min 05/07/21 06:50 BUN/Creatinine Ratio 10 % 05/07/21 06:50 Glucose 163 mg/dL (75-100) H 05/07/21 06:50 POC Glucose 164 mg/dL (70-105) H 05/07/21 11:17 Lactic Acid 1.20 mmol/L (0.7-2.0) 05/05/21 21:27 Calcium 9.2 mg/dL (8.4-10.2) 05/07/21 06:50 Total Bilirubin 0.50 mg/dL (0.1-1.2) 05/05/21 17:56 AST 31 units/L (5-40) 05/05/21 17:56 ALT 44 units/L (7-56) 05/05/21 17:56 Alkaline Phosphatase 139 units/L (35-129) H 05/05/21 17:56 Total Protein 7.4 g/dL (6.3-8.2) 05/05/21 17:56 Albumin 4.1 g/dL (3.9-5) 05/05/21 17:56 Albumin/Globulin Ratio 1.2 % 05/05/21 17:56 Urine Color Yellow (Yellow) 05/05/21 Unknown Urine Turbidity Clear (Clear) 05/05/21 Unknown Urine pH 5.0 (5.0-7.0) 05/05/21 Unknown Ur Specific [place] 1.035 (1.003-1.030) H 05/05/21 Unknown Urine Protein 100 mg/dl mg/dL (Negative) 05/05/21 Unknown Urine Glucose (UA) Neg mg/dL (Negative) 05/05/21 Unknown Urine Ketones 20 mg/dL (Negative) 05/05/21 Unknown Urine Blood Mod (Negative) 05/05/21 Unknown Urine Nitrite Neg (Negative) 05/05/21 Unknown Urine Bilirubin Neg (Negative) 05/05/21 Unknown Urine Urobilinogen 2.0 mg/dL (<2.0) 05/05/21 Unknown Ur Leukocyte Esterase Neg (Negative) 05/05/21 Unknown Urine WBC (Auto) 1.0 /HPF (0.0-6.0) 05/05/21 Unknown Urine RBC (Auto) 2.0 /HPF (0.0-6.0) 05/05/21 Unknown Urine Mucus Few /HPF 05/05/21 Unknown Microbiology: Microbiology 05/05/21 18:04 Peripheral/Venous Blood Culture - Preliminary NO GROWTH AFTER 24 HOURS 05/05/21 17:56 Peripheral/Venous Blood Culture - Preliminary NO GROWTH AFTER 24 HOURS Stokes/IV: Voiding Method Urinal Active Medications - Current Medications Current Medications: Generic Name Dose Route Start Last Admin Trade Name Freq PRN Reason Stop Dose Admin Acetaminophen 650 mg 05/05/21 21:48 Acetaminophen 325 Mg Tab PO Q4H PRN Pain MILD(1-3)/Fever >100.5/MYERS Dextrose 0 ml 05/05/21 21:46 Dextrose 50% In Water (25gm) 50 Ml Syringe IV Q30MIN PRN Hypoglycemia Protocol Heparin Sodium (Porcine) 5,000 unit 05/05/21 22:00 05/07/21 05:50 Heparin 5,000 Unit/1 Ml Vial SUB-Q 5,000 unit Q8HR SUNDAR Administration Sodium Chloride 1,000 mls @ 125 mls/hr 05/05/21 22:00 05/07/21 05:52 Nacl 0.9% 1000 Ml IV 125 mls/hr DIRECT SUNDAR Administration Piperacillin Sod/Tazobactam Sod 4.5 gm in 100 mls @ 200 mls/hr 05/06/21 06:00 05/07/21 07:16 Zosyn/Ns 4.5gm/100ml IV Infused Q8H SUNDAR Infusion Protocol Vancomycin HCl 1,500 mg/ 530 mls @ 333.333 mls/hr 05/06/21 20:00 05/07/21 08:19 Sodium Chloride IV 333.333 mls/hr Q12H SUNDAR Administration Insulin Human Regular 0 units 05/05/21 22:00 05/07/21 08:09 Insulin Regular, Human 100 Units/1 Ml SUB-Q Not Given ACHS SUNDAR Protocol Magnesium Hydroxide 30 ml 05/05/21 21:46 Magnesium Hydroxide (Mom) Oral Liqd Udc PO Q4H PRN Constipation Morphine Sulfate 2 mg 05/05/21 21:46 05/06/21 18:44 Morphine 2 Mg/1 Ml Inj IV 2 mg Q4H PRN Administration Pain, Moderate (4-6) Morphine Sulfate 4 mg 05/05/21 21:46 05/07/21 08:18 Morphine 4 Mg/1 Ml Inj IV 4 mg Q4H PRN Administration Pain , Severe (7-10) Ondansetron HCl 4 mg 05/05/21 21:48 05/06/21 21:51 Ondansetron 4 Mg/2 Ml Inj IV 4 mg Q8H PRN Administration Nausea And Vomiting Oxycodone/Acetaminophen 1 tab 05/05/21 21:48 Oxycodone /Acetaminophen 5-325mg Tab PO Q6H PRN Pain, Moderate (4-6) Sodium Chloride 10 ml 05/05/21 22:00 05/06/21 21:24 Sodium Chloride 0.9% 10 Ml Flush Syringe IV 10 ml BID SUNDAR Administration Sodium Chloride 10 ml 05/05/21 21:48 Sodium Chloride 0.9% 10 Ml Flush Syringe IV PRN PRN LINE FLUSH Nutrition/Malnutrition Assess - Dietary Evaluation Nutrition/Malnutrition Findings: Nutrition Notes Start: 05/06/21 12:25 Freq: Status: Active Protocol: Document 05/06/21 12:26 (Rec: 05/06/21 12:32 [id number]) Nutrition Notes Need for Assessment generated from: MD Order,Education Initial or Follow up Assessment Current Diagnosis Diabetes Other Pertinent Diagnosis abscess or cellulitis of groin Current Diet Consistent CHO Labs/Tests K 3.1 BG 147 Pertinent Medications NS at 125 ml/hr Height 5 ft 9 in Weight 104.326 kg Usual Body Weight 105.9 kg [place] Body Weight (kg) 72.72 BMI 34.0 Intake Prior to Admission Fair Weight change and time frame 1.5% wt loss in 3-4 days Weight Status Obese Subjective/Other Information MD consult for diet education. Gave pt DM diet education. All questions answered. Pt eating 50% of meals due to decreased appetite for 3-4 days. Burn Absent Trauma Absent GI Symptoms None Current % PO Poor (25-49%) Minimum of two criteria No Interpretation of Weight Loss (non- 1-2% in 1 week severe) #2 Nutrition Diagnosis Food and nutrition-related knowledge deficit Etiology no prior DM education As Evidenced by Signs and Symptoms pt had questions about food with carbs #1 Nutrition Diagnosis Inadequate oral intake Etiology pain As Evidenced by Signs and Symptoms pt eating 50% of meals Is patient on ventilator? No Is Patient Ambulatory and/or Out of Bed No REE-([facility]-confined to bed) 2193.252 Kcal/Kg value to use for calculation 16 Approximate Energy Requirements Using 1669 kcal/Kg Calculation Used for Recommendations Kcal/kg Additional Notes Protein: (0.8-1g/kg AdjBW: 89kg) 71-89g Fluid: 1 ml/kcal Nutrition Intervention Change Diet Order: continue Add Supplement/Snack (indicate name/kcal Glucerna BID /protein ) Provides kCal: 440 Provides Protein (gm) 20 Teaching Recipient Patient Learning Readiness Good Teaching Methods Discussion,Handout Response to Teaching Verbalize understanding Education Handouts Provided Carb Counting Label Reading Tips Barriers to Learning No Barriers RD phone number provided Yes Patient aware of follow up options Yes Goal #1 Meet at least 75% of energy and protein needs via PO and ONS Anticipated Discharge Needs: consistent CHO Follow-Up By: 05/08/21 Additional Comments FU for intakes and ONS tolerance
[2021-05-07] MEDS ORDERED: BUPIVACAINE/PF (0.5%) 5 MG/1 ML 30 ML VIAL INFILTRATI ONE ×3 (12:53→14:48)
[2021-05-07] MEDS ORDERED: HYDROGEN PEROXIDE 118 ML SOLUTION ONE (12:53)
[2021-05-07] MEDS ORDERED: propofoL 200 MG/20 ML VIAL IV ONE (13:26)
[2021-05-07] MEDS ORDERED: HYDROmorphone 1 MG/1 ML INJ ONE (13:26)
[2021-05-07] MEDS ORDERED: LIDOCAINE MPF (2%) 20 MG/1 ML VIAL 5 ML ONE (13:26)
[2021-05-07] MEDS ORDERED: ONDANSETRON 4 MG/2 ML INJ IV PRN (14:03)
[2021-05-07] MEDS ORDERED: HYDROmorphone 1 MG/1 ML INJ IV PRN (14:03)
--- NOTE | 2021-05-07 14:04 | Anesthesia Day of Surgery ---
Anesthesia Day of Surgery - Day of Surgery Patient Examined: Yes Patient H&P Reviewed: Yes Patient is NPO: Yes
--- NOTE | 2021-05-07 14:08 | Anesthesia Consultation ---
Anesthesia Consult and Med Hx Date of service: 05/07/21 - Airway Anesthetic Teeth Evaluation: Poor, Chipped (Missing) ROM Head & Neck: Adequate Mental/Hyoid Distance: Adequate Mallampati Class: Class III Intubation Access Assessment: Probably Good - Pre-Operative Health Status ASA Pre-Surgery Classification: ASA3 Proposed Anesthetic Plan: General - Cardiovascular System Hx Hypertension: Yes - Central Nervous System Hx Neuromuscular Disorder: Yes (brain aneurysm surgery) - Endocrine Hx Non-Insulin Dependent Diabetes: Yes - Other Systems Hx Obesity: Yes
[2021-05-07] MEDS ORDERED: SODIUM HYPOCHLORITE, DAKIN'S 1/2 STRENGTH (0.25%) 473 ML TOPICAL SOLN ONE (14:15)
[2021-05-07] MEDS ORDERED: ONDANSETRON 4 MG/2 ML INJ ONE (14:28)
--- NOTE | 2021-05-07 14:31 | Post Operative Note ---
Pre-op diagnosis: abscess of right groin Post-op diagnosis: same Findings: Abscess cavity right groin measuring 5.4x2.6x3.5 cm with tunneling at the 6 oclock position Procedure: incision and drainage of right groin abscess Anesthesia: PHILA, local Surgeon: HERMES LUCIO Estimated blood loss: minimal Pathology: list (wound culture) Specimen disposition: to lab Condition: stable Disposition: PACU
--- NOTE | 2021-05-07 14:46 | Event Note ---
Date: 05/07/21 65-year-old male with diabetes, right groin abscess, just underwent drainage in the operating room. Infectious diseases has been consulted for antibiotic management. Not back from the OR yet. Recommendations: IV ceftriaxone, Flagyl, vancomycin Follow-up cultures Maintain glycemic control Full consult tomorrow Yuly Pitts MD, FACP [facility] ([facility] O: [phone] F: [phone]
[2021-05-07] MEDS ORDERED: SODIUM CHLORIDE 0.9% IRR 1,500 ML BOTTLE IR ONE ×2 (14:49)
[2021-05-07] MEDS ORDERED: SODIUM HYPOCHLORITE, DAKIN'S 1/2 STRENGTH (0.25%) 473 ML TOPICAL SOLN IR ONE (14:49)
[2021-05-07] MEDS: HYDROmorphone 1 MG/1 ML INJ IV PRN ×2 (14:50→15:00)
[2021-05-07] MEDS: metroNIDAZOLE/NS 500 MG/100 ML 500 MG/100 ML BAG IV SCH ×2 (15:22→23:21)
[2021-05-07] MEDS ORDERED: hydrALAZINE 20 MG/1 ML INJ IV PRN (15:25)
[2021-05-07] MEDS ORDERED: hydrALAZINE 20 MG/1 ML INJ ONE (15:28)
[2021-05-07] MEDS: cefTRIAXone/NS 2 GM/100 ML 2 GM/100 ML BAG IV SCH (18:02)
--- NOTE | 2021-05-07 19:55 | Post Anesthesia Evaluation ---
- Post Anesthesia Evaluation Patient Participated: Yes Airway Patent: Yes Stable Respiratory Function: Yes Nausea/Vomiting: No Temp > 96.8F: Yes Pain Manageable: Yes Adequeate Hydration: Yes Anesthesia Complications: No Block Receding Appropriately: Not Applicable Patient on Ventilator: No
[2021-05-08] MEDS: HEPARIN 5,000 UNIT/1 ML VIAL SUB-Q SCH ×3 (06:24→22:01)
[2021-05-08] MEDS: metroNIDAZOLE/NS 500 MG/100 ML 500 MG/100 ML BAG IV SCH ×3 (06:26→23:20)
[2021-05-08 07:46] LABS: Hematocrit 37.6 % (35.5-45.6); Hemoglobin 12.9 gm/dl (11.8-15.2); Mean Corpuscular HGB Conc 34 % (32-34); Mean Corpuscular Volume 93 fl (84-94); Platelet Count 319 K/mm3 (140-440); Red Blood Count 4.05 M/mm3 (3.65-5.03); Red Cell Distribution Width 13.3 % (13.2-15.2)
[2021-05-08 08:03] LABS: Blood Urea Nitrogen 4 mg/dL (9-20); Calcium 9.2 mg/dL (8.4-10.2); Hemolysis Index 3
[2021-05-08 08:33] LABS: BUN/Creatinine Ratio 8
--- NOTE | 2021-05-08 08:38 | Progress Note ---
Assessment and Plan Assessment and plan: 55-year-old -[place] male with known history of diabetes mellitus presenting to the emergency room today complaining of right inguinal swelling. Swelling has been ongoing for the past 4 days and has been getting progressive. He denies any fever or chills, no chest pain or shortness of breath, no nausea vomiting, no abdominal pain, no hematuria or dysuria. Denies any injury or wound to the right groin. Denies any obvious drainage. Denies any scrotal swelling or pain and there is no penile discharge. Work-up in the emergency room today reveals leukocytosis of 24 and the rest of the lab is unremarkable. Pelvic CT reveals inflammatory process/cellulitis involving the right scrotum and right lower inguinal area. Patient is being admitted with cellulitis of the right inguinal region. 05/07: Patient continues to do well today. Continue antibiotics. ID consulted. Patient was seen by general surgery yesterday and part of recommendation includes "Will need I&D, debridement of right groin/perineum. Explained to patient that is likely a necrotizing infection which result in large open wound, multiple trips to OR, and pain. He understands and is agreeable to proceed with surgery. Consent obtained and patient to go to OR today as soon as possible. If scrotum is involved, he will need a urology consult." We will continue to follow and await further management plan. 05/08; status post incision and drainage of right groin abscess likely necrotizing fasciitis, patient is on IV Flagyl, ceftriaxone and vancomycin per ID recommendation. Surgery is following the patient. Blood sugar is in target. Continue current treatment for now. (1) Abscess or cellulitis of groin ?Narcotizing fasciitis Current Visit: Yes Status: Acute (2) Diabetes mellitus Current Visit: Yes Status: Acute (3) Hypokalemia (5) DVT prophylaxis Current Visit: Yes Status: Acute (6) Full code status Current Visit: Yes Status: Acute History Interval history: Patient was seen and evaluated this morning Patient said he did not have any pain No complaints Hospitalist Physical - Physical exam Narrative exam: Not in cardiopulmonary distress. The patient appeared well nourished and normally developed. Vital signs as documented. Head exam is unremarkable. No scleral icterus . Neck is without jugular venous distension, thyromegaly, or carotid bruits. Lungs are clear to auscultation. Cardiac exam reveals regular rate and Rhythm. Abdominal exam reveals normal bowel sounds, nontender, no organomegaly. Status post incision and drainage of right groin abscess Extremities are nonedematous and both femoral and pedal pulses are normal. SAP TRAINER: Alert and oriented 3. No focal weakness. - Constitutional Vitals: Temp Pulse Resp BP Pulse Ox 98.1 F 73 18 172/97 100 05/08/21 04:17 05/08/21 04:17 05/08/21 04:17 05/08/21 04:17 05/08/21 04:17 General appearance: Present: no acute distress, well-nourished Results - Labs CBC & Chem 7: 05/08/21 06:58 05/08/21 06:58 Labs: Laboratory Last Values WBC 12.2 K/mm3 (4.5-11.0) H 05/08/21 06:58 RBC 4.05 M/mm3 (3.65-5.03) 05/08/21 06:58 Hgb 12.9 gm/dl (11.8-15.2) 05/08/21 06:58 Hct 37.6 % (35.5-45.6) 05/08/21 06:58 MCV 93 fl (84-94) 05/08/21 06:58 MCH 32 pg (28-32) 05/08/21 06:58 MCHC 34 % (32-34) 05/08/21 06:58 RDW 13.3 % (13.2-15.2) 05/08/21 06:58 Plt Count 319 K/mm3 (140-440) 05/08/21 06:58 Lymph % (Auto) 10.4 % (13.4-35.0) L 05/06/21 07:53 [place] % (Auto) 13.1 % (0.0-7.3) H 05/06/21 07:53 Eos % (Auto) 1.0 % (0.0-4.3) 05/06/21 07:53 Baso % (Auto) 0.2 % (0.0-1.8) 05/06/21 07:53 Lymph # (Auto) 1.9 K/mm3 (1.2-5.4) 05/06/21 07:53 [place] # (Auto) 2.4 K/mm3 (0.0-0.8) H 05/06/21 07:53 Eos # (Auto) 0.2 K/mm3 (0.0-0.4) 05/06/21 07:53 Baso # (Auto) 0.0 K/mm3 (0.0-0.1) 05/06/21 07:53 Seg Neutrophils % 75.3 % (40.0-70.0) H 05/06/21 07:53 Seg Neutrophils # 13.7 K/mm3 (1.8-7.7) H 05/06/21 07:53 PT 13.1 Sec. (12.2-14.9) 05/06/21 07:53 INR 0.93 (0.87-1.13) 05/06/21 07:53 Sodium 143 mmol/L (137-145) 05/08/21 06:58 Potassium 3.2 mmol/L (3.6-5.0) L 05/08/21 06:58 Chloride 101.8 mmol/L (98-107) 05/08/21 06:58 Carbon Dioxide 29 mmol/L (22-30) 05/08/21 06:58 Anion Gap 15 mmol/L 05/08/21 06:58 BUN 4 mg/dL (9-20) L 05/08/21 06:58 Creatinine 0.5 mg/dL (0.8-1.3) L 05/08/21 06:58 Estimated GFR > 60 ml/min 05/08/21 06:58 BUN/Creatinine Ratio 8 % 05/08/21 06:58 Glucose 152 mg/dL (75-100) H 05/08/21 06:58 POC Glucose 179 mg/dL (70-105) H 05/08/21 07:40 Hemoglobin A1c 7.4 % (4-6) H 05/07/21 06:50 Lactic Acid 1.20 mmol/L (0.7-2.0) 05/05/21 21:27 Calcium 9.2 mg/dL (8.4-10.2) 05/08/21 06:58 Total Bilirubin 0.50 mg/dL (0.1-1.2) 05/05/21 17:56 AST 31 units/L (5-40) 05/05/21 17:56 ALT 44 units/L (7-56) 05/05/21 17:56 Alkaline Phosphatase 139 units/L (35-129) H 05/05/21 17:56 Total Protein 7.4 g/dL (6.3-8.2) 05/05/21 17:56 Albumin 4.1 g/dL (3.9-5) 05/05/21 17:56 Albumin/Globulin Ratio 1.2 % 05/05/21 17:56 Urine Color Yellow (Yellow) 05/05/21 Unknown Urine Turbidity Clear (Clear) 05/05/21 Unknown Urine pH 5.0 (5.0-7.0) 05/05/21 Unknown Ur Specific [place] 1.035 (1.003-1.030) H 05/05/21 Unknown Urine Protein 100 mg/dl mg/dL (Negative) 05/05/21 Unknown Urine Glucose (UA) Neg mg/dL (Negative) 05/05/21 Unknown Urine Ketones 20 mg/dL (Negative) 05/05/21 Unknown Urine Blood Mod (Negative) 05/05/21 Unknown Urine Nitrite Neg (Negative) 05/05/21 Unknown Urine Bilirubin Neg (Negative) 05/05/21 Unknown Urine Urobilinogen 2.0 mg/dL (<2.0) 05/05/21 Unknown Ur Leukocyte Esterase Neg (Negative) 05/05/21 Unknown Urine WBC (Auto) 1.0 /HPF (0.0-6.0) 05/05/21 Unknown Urine RBC (Auto) 2.0 /HPF (0.0-6.0) 05/05/21 Unknown Urine Mucus Few /HPF 05/05/21 Unknown Microbiology: Microbiology 05/05/21 18:04 Peripheral/Venous Blood Culture - Preliminary NO GROWTH AFTER 48 HOURS 05/05/21 17:56 Peripheral/Venous Blood Culture - Preliminary NO GROWTH AFTER 48 HOURS Stokes/IV: Voiding Method Urinal Active Medications - Current Medications Current Medications: Generic Name Dose Route Start Last Admin Trade Name Freq PRN Reason Stop Dose Admin Acetaminophen 650 mg 05/05/21 21:48 Acetaminophen 325 Mg Tab PO Q4H PRN Pain MILD(1-3)/Fever >100.5/MYERS Dextrose 0 ml 05/05/21 21:46 Dextrose 50% In Water (25gm) 50 Ml Syringe IV Q30MIN PRN Hypoglycemia Protocol Heparin Sodium (Porcine) 5,000 unit 05/05/21 22:00 05/08/21 06:24 Heparin 5,000 Unit/1 Ml Vial SUB-Q 5,000 unit Q8HR SUNDAR Administration Hydralazine HCl 5 mg 05/07/21 15:25 05/07/21 15:30 Hydralazine 20 Mg/1 Ml Inj IV 5 mg Q30MIN PRN Administration Hypertension Sodium Chloride 1,000 mls @ 125 mls/hr 05/05/21 22:00 05/07/21 21:18 Nacl 0.9% 1000 Ml IV 125 mls/hr DIRECT SUNDAR Administration Vancomycin HCl 1,500 mg/ 530 mls @ 333.333 mls/hr 05/06/21 20:00 05/07/21 20:27 Sodium Chloride IV 333.333 mls/hr Q12H SUNDAR Administration Ceftriaxone Sodium 2 gm in 100 mls @ 200 mls/hr 05/07/21 15:00 05/07/21 18:02 Rocephin/Ns 2 Gm/100 Ml IV 200 mls/hr Q24HR SUNDAR Administration Protocol Metronidazole 500 mg in 100 mls @ 100 mls/hr 05/07/21 15:00 05/08/21 06:26 Flagyl 500 Mg/100 Ml IV 100 mls/hr Q8H SUNDAR Administration Protocol Insulin Human Regular 0 units 05/05/21 22:00 05/07/21 22:29 Insulin Regular, Human 100 Units/1 Ml SUB-Q Not Given ACHS SUNDAR Protocol Magnesium Hydroxide 30 ml 05/05/21 21:46 Magnesium Hydroxide (Mom) Oral Liqd Udc PO Q4H PRN Constipation Morphine Sulfate 2 mg 05/05/21 21:46 05/06/21 18:44 Morphine 2 Mg/1 Ml Inj IV 2 mg Q4H PRN Administration Pain, Moderate (4-6) Morphine Sulfate 4 mg 05/05/21 21:46 05/07/21 08:18 Morphine 4 Mg/1 Ml Inj IV 4 mg Q4H PRN Administration Pain , Severe (7-10) Ondansetron HCl 4 mg 05/05/21 21:48 05/06/21 21:51 Ondansetron 4 Mg/2 Ml Inj IV 4 mg Q8H PRN Administration Nausea And Vomiting Oxycodone/Acetaminophen 1 tab 05/05/21 21:48 Oxycodone /Acetaminophen 5-325mg Tab PO Q6H PRN Pain, Moderate (4-6) Sodium Chloride 10 ml 05/05/21 22:00 05/07/21 21:18 Sodium Chloride 0.9% 10 Ml Flush Syringe IV 10 ml BID SUNDAR Administration Sodium Chloride 10 ml 05/05/21 21:48 Sodium Chloride 0.9% 10 Ml Flush Syringe IV PRN PRN LINE FLUSH Nutrition/Malnutrition Assess - Dietary Evaluation Nutrition/Malnutrition Findings: Nutrition Notes Start: 05/06/21 12:25 Freq: Status: Active Protocol: Document 05/06/21 12:26 (Rec: 05/06/21 12:32 [id number]) Nutrition Notes Need for Assessment generated from: MD Order,Education Initial or Follow up Assessment Current Diagnosis Diabetes Other Pertinent Diagnosis abscess or cellulitis of groin Current Diet Consistent CHO Labs/Tests K 3.1 BG 147 Pertinent Medications NS at 125 ml/hr Height 5 ft 9 in Weight 104.326 kg Usual Body Weight 105.9 kg [place] Body Weight (kg) 72.72 BMI 34.0 Intake Prior to Admission Fair Weight change and time frame 1.5% wt loss in 3-4 days Weight Status Obese Subjective/Other Information MD consult for diet education. Gave pt DM diet education. All questions answered. Pt eating 50% of meals due to decreased appetite for 3-4 days. Burn Absent Trauma Absent GI Symptoms None Current % PO Poor (25-49%) Minimum of two criteria No Interpretation of Weight Loss (non- 1-2% in 1 week severe) #2 Nutrition Diagnosis Food and nutrition-related knowledge deficit Etiology no prior DM education As Evidenced by Signs and Symptoms pt had questions about food with carbs #1 Nutrition Diagnosis Inadequate oral intake Etiology pain As Evidenced by Signs and Symptoms pt eating 50% of meals Is patient on ventilator? No Is Patient Ambulatory and/or Out of Bed No REE-([place]-confined to bed) 2193.252 Kcal/Kg value to use for calculation 16 Approximate Energy Requirements Using 1669 kcal/Kg Calculation Used for Recommendations Kcal/kg Additional Notes Protein: (0.8-1g/kg AdjBW: 89kg) 71-89g Fluid: 1 ml/kcal Nutrition Intervention Change Diet Order: continue Add Supplement/Snack (indicate name/kcal Glucerna BID /protein ) Provides kCal: 440 Provides Protein (gm) 20 Teaching Recipient Patient Learning Readiness Good Teaching Methods Discussion,Handout Response to Teaching Verbalize understanding Education Handouts Provided Carb Counting Label Reading Tips Barriers to Learning No Barriers RD phone number provided Yes Patient aware of follow up options Yes Goal #1 Meet at least 75% of energy and protein needs via PO and ONS Anticipated Discharge Needs: consistent CHO Follow-Up By: 05/08/21 Additional Comments FU for intakes and ONS tolerance
[2021-05-08] MEDS: MORPHINE 4 MG/1 ML INJ IV PRN (08:47)
[2021-05-08] MEDS: INSULIN REGULAR, HUMAN 100 UNITS/1 ML SUB-Q SCH ×4 (08:48→22:01)
[2021-05-08] MEDS: cefTRIAXone/NS 2 GM/100 ML 2 GM/100 ML BAG IV SCH (10:19)
[2021-05-08] MEDS: SODIUM CHLORIDE 0.9% 1000 ML 1,000 ML IV SCH (10:19)
[2021-05-08] MEDS: VANCOMYCIN 1,500 MG in SODIUM CHLORIDE 0.9% 500 ML 500 ML IV SCH (10:19)
[2021-05-08] MEDS: ONDANSETRON 4 MG/2 ML INJ IV PRN (10:19)
[2021-05-08] MEDS: MORPHINE 2 MG/1 ML INJ IV PRN (10:22)
--- NOTE | 2021-05-08 11:10 | Progress Note ---
Assessment and Plan 65 yo M s/p incision and drainage of right groin abscess, POD 1 Plan: 1. Daily dressing changes - RN orders placed 2. Follow up wound cultures 3. ID on board - continue abx 4. Home health care ordered 6. PRN pain control 7. Patient has appointment to follow up in wound care clinic on May 21 @11am. [address] [facility], [address], [place], [place]. [phone]. Ok to dc when ID makes final abx recs. Will s/o. Thank you, please call with questions. Subjective Date of service: 05/08/21 Narrative: Pt seen and examined. No complaints. States he feels better. Afebrile. Objective Vital Signs - 12hr 05/07/21 05/08/21 05/08/21 23:43 00:00 04:17 Temperature 98.2 F 98.1 F Pulse Rate 66 73 Respiratory 20 18 18 Rate Blood Pressure 175/102 172/97 O2 Sat by Pulse 100 95 100 Oximetry - General physical appearance Narrative Exam: gen: AAox3. NAD Ext: R groin dressing removed and one piece of packing removed from wound. Wound is clean with mild bleeding from the skin - controlled with pressure. Wound bed is red without odor. Wound packed with saline moistened kerlex - 1 piece - and covered with dry gauze. There is still induration of the skin but no additional drainage. - Labs 05/08/21 06:58 05/08/21 06:58 Diabetes panel 05/07/21 05/08/21 Range/Units 06:50 06:58 Sodium 143 (137-145) mmol/L Potassium 3.2 L (3.6-5.0) mmol/L Chloride 101.8 (98-107) mmol/L Carbon Dioxide 29 (22-30) mmol/L BUN 4 L (9-20) mg/dL Creatinine 0.5 L (0.8-1.3) mg/dL Glucose 152 H (75-100) mg/dL Hemoglobin A1c 7.4 H (4-6) % Calcium 9.2 (8.4-10.2) mg/dL Calcium panel 05/08/21 Range/Units 06:58 Calcium 9.2 (8.4-10.2) mg/dL Pituitary panel 05/08/21 Range/Units 06:58 Sodium 143 (137-145) mmol/L Potassium 3.2 L (3.6-5.0) mmol/L Chloride 101.8 (98-107) mmol/L Carbon Dioxide 29 (22-30) mmol/L BUN 4 L (9-20) mg/dL Creatinine 0.5 L (0.8-1.3) mg/dL Glucose 152 H (75-100) mg/dL Calcium 9.2 (8.4-10.2) mg/dL Adrenal panel 05/08/21 Range/Units 06:58 Sodium 143 (137-145) mmol/L Potassium 3.2 L (3.6-5.0) mmol/L Chloride 101.8 (98-107) mmol/L Carbon Dioxide 29 (22-30) mmol/L BUN 4 L (9-20) mg/dL Creatinine 0.5 L (0.8-1.3) mg/dL Glucose 152 H (75-100) mg/dL Calcium 9.2 (8.4-10.2) mg/dL
--- NOTE | 2021-05-08 11:28 | Operative Report ---
Operative Report Operative Report: Date: 05/07/21 Pre-op diagnosis: abscess of right groin Post-op diagnosis: same Findings: Abscess cavity right groin measuring 5.4x2.6x3.5 cm with tunneling at the 6 oclock position Procedure: incision and drainage of right groin abscess Anesthesia: GINNY, local Surgeon: HERMES LUCIO Estimated blood loss: minimal Pathology: list (wound culture) Specimen disposition: to lab Condition: stable Disposition: PACU HPI and indication: Patient is a 65-year-old male with diabetes who presented to the hospital with complaints of swelling and pain in his right groin. He was found to have a right groin abscess. It was recommended that the patient undergo incision and drainage in the operating room. All risk, benefits, alternatives to surgery were discussed with the patient questions answered. Consent was obt ained. Procedure in detail: Patient was identified in the preoperative area, taken back to the operating room and placed on the operating room table in supine position. After anesthesia was induced he was placed in frog-leg position and the right groin and scrotal area was prepped and draped in the usual sterile fashion. A timeout was performed. The area of fluctuance and induration was identified in the right groin and there was purulent drainage expressed from a tiny opening in the skin. An incision was made in the skin using an 11 blade at the site of this opening. The area was probed with a gloved finger and there was immediate drainage of copious amount of purulent fluid. Cultures were obtained. All loculations were broken up using blunt dissection. There was tunneling at the 6 o'clock position. There was no involvement of the scrotum. The wound was then irrigated and hemostasis very carefully ensured. 2 pieces of Surgicel were placed into the wound and pressure held. Hemostasis was ensured. Local anesthetic was infiltrated to the skin around the wound. The wound was then packed with 1 piece of Dakin's moistened Kerlix. This was covered with 4 x 4 gauze ABD pad and secured with mesh underwear. At the end of the case all sponge, instrument, sharp counts were correct x2. The patient was awoken from anesthesia and taken to PACU in stable condition.
[2021-05-08] MEDS ORDERED: NON-FORMULARY EACH (Amlodipine 10 MG) PO SCH (12:45)
[2021-05-08] MEDS ORDERED: POTASSIUM CHLORIDE ER 20 MEQ TAB PO ONE (13:00)
[2021-05-08] MEDS: levETIRAcetam 500 MG TAB PO SCH ×2 (13:42→22:01)
[2021-05-08] MEDS: oxyCODONE /ACETAMINOPHEN 5-325MG TAB PO PRN (13:42)
[2021-05-08] MEDS: amLODIPine 10 MG TAB PO SCH (13:42)
--- NOTE | 2021-05-08 14:38 | Consultation ---
History of Present Illness - Reason for Consult Consult date: 05/08/21 necrotizing infection Requesting physician: ELLIE BRANHAM - History of Present Illness The patient is a 65-year-old male with diabetes mellitus, obesity was admitted to the hospital with right inguinal swelling and pain worsening over the past 3 to 4 days. Then started developing spontaneous drainage. Noted to have sepsis upon work-up in the ER, CT scan also revealed inflammatory process/cellulitis and abscess in the right inguinal region. Patient was seen by general surgery and on 05/07/2021 he underwent an I&D of right groin abscess. Infectious diseases was consulted for antibiotic management. He has been afebrile. Now receiving ceftriaxone, Flagyl and vancomycin. Drinks alcohol socially, former smoker. Review of Systems: General: no fevers,chills or rigors HEENT: no new visual disturbance Respiratory: No cough, sputum, hemoptysis or shortness of breath Cardiovascular: No chest pain, syncope Gastrointestinal: No nausea, vomiting or diarrhea Genitourinary: No dysuria or hematuria Musculoskeletal: No new or worsening neck pain or back pain Neurologic: No headaches, seizures Hematologic: No easy bruising or bleeding Endocrine: No night sweats or acute weight loss Skin: negative for rash, jaundice Psychiatric: No suicidal or homicidal ideation Past History Past Medical History: diabetes, other (brain aneurysm, hernia) Past Surgical History: Other (Brain aneurysm, hernia surgeryx2, tracheostomy) Social history: no significant social history Family history: no significant family history Medications and Allergies Allergies Allergy/AdvReac Type Severity Reaction Status Date / Time No Known Allergies Allergy Verified 05/05/21 18:38 Home Medications Medication Instructions Recorded Confirmed Last Taken Type Acetaminophen [Tylenol] 650 mg PO Q6H PRN 05/06/21 05/06/21 05/05/21 History Famotidine [Pepcid] 20 mg PO DAILY 05/06/21 05/06/21 05/05/21 History amLODIPine 5 mg PO DAILY 05/06/21 05/06/21 05/05/21 History levETIRAcetam [Keppra TAB] 500 mg PO BID 05/06/21 05/06/21 05/05/21 History metFORMIN [Glucophage] 500 mg PO BID 05/06/21 05/06/21 05/05/21 History Active Meds: Active Medications Acetaminophen (Acetaminophen 325 Mg Tab) 650 mg PO Q4H PRN PRN Reason: Pain MILD(1-3)/Fever >100.5/MYERS Amlodipine Besylate (Amlodipine 10 Mg Tab) 10 mg PO DAILY [facility] Last Admin: 05/08/21 13:42 Dose: 10 mg Documented by: Dextrose (Dextrose 50% In Water (25gm) 50 Ml Syringe) 0 ml IV Q30MIN PRN; Protocol PRN Reason: Hypoglycemia Heparin Sodium (Porcine) (Heparin 5,000 Unit/1 Ml Vial) 5,000 unit SUB-Q Q8HR [facility]DAR Last Admin: 05/08/21 13:42 Dose: 5,000 unit Documented by: Hydralazine HCl (Hydralazine 20 Mg/1 Ml Inj) 5 mg IV Q30MIN PRN PRN Reason: Hypertension Last Admin: 05/07/21 15:30 Dose: 5 mg Documented by: Ceftriaxone Sodium (Rocephin/Ns 2 Gm/100 Ml) 2 gm in 100 mls @ 200 mls/hr IV Q24HR SUNDAR; Protocol Last Infusion: 05/08/21 13:00 Dose: Infused Documented by: Metronidazole (Flagyl 500 Mg/100 Ml) 500 mg in 100 mls @ 100 mls/hr IV Q8H SUNDAR; Protocol Last Infusion: 05/08/21 11:21 Dose: Infused Documented by: Vancomycin HCl 1,750 mg/ (Sodium Chloride) 535 mls @ 333.333 mls/hr IV Q12HR [facility] Insulin Human Regular (Insulin Regular, Human 100 Units/1 Ml) 0 units SUB-Q ACHS [facility]; Protocol Last Admin: 05/08/21 13:05 Dose: 2 units Documented by: Levetiracetam (Levetiracetam 500 Mg Tab) 500 mg PO BID [facility] Last Admin: 05/08/21 13:42 Dose: 500 mg Documented by: Magnesium Hydroxide (Magnesium Hydroxide (Mom) Oral Liqd Udc) 30 ml PO Q4H PRN PRN Reason: Constipation Morphine Sulfate (Morphine 2 Mg/1 Ml Inj) 2 mg IV Q4H PRN PRN Reason: Pain , Severe (7-10) Last Admin: 05/08/21 10:22 Dose: 2 mg Documented by: Ondansetron HCl (Ondansetron 4 Mg/2 Ml Inj) 4 mg IV Q8H PRN PRN Reason: Nausea And Vomiting Last Admin: 05/08/21 10:19 Dose: 4 mg Documented by: Oxycodone/Acetaminophen (Oxycodone /Acetaminophen 5-325mg Tab) 1 tab PO Q6H PRN PRN Reason: Pain, Moderate (4-6) Last Admin: 05/08/21 13:42 Dose: 1 tab Documented by: Sodium Chloride (Sodium Chloride 0.9% 10 Ml Flush Syringe) 10 ml IV BID [facility] Last Admin: 05/08/21 10:25 Dose: 10 ml Documented by: Sodium Chloride (Sodium Chloride 0.9% 10 Ml Flush Syringe) 10 ml IV PRN PRN PRN Reason: LINE FLUSH Sodium Hypochlorite (Sodium Hypochlorite, Dakin's 1/2 Strength (0.25%) 473 Ml Topical Soln) 1 applic TP DAILY [facility] Physical Examination - Physical Exam Narrative exam: Physical Exam: Constitutional: Alert, cooperative. No acute distress Head, Ears, Nose: Normocephalic, atraumatic. External ears, nose normal Eyes: Conjunctivae/corneas clear. No icterus. No ptosis. Neck: Supple, no meningeal signs Cardiovascular: S1, S2 normal. Respiratory: Good air entry, clear to auscultation bilaterally GI: Soft, non-tender; bowel sounds normal. No peritoneal signs Musculoskeletal: Right groin dressing present, tenderness around it with mild induration Skin: No rash or abscess Hem/Lymphatic: No palpable cervical or supraclavicular nodes. No lymphangitis Psych: Mood ok. Affect normal Neurological: Awake, alert, oriented. No gross abnormality - Constitutional Vitals: Vital Signs Temp Pulse Resp BP Pulse Ox 98.1 F 73 18 172/97 100 05/08/21 04:17 05/08/21 13:42 05/08/21 04:17 05/08/21 13:42 05/08/21 04:17 Temperature -Last 24 Hours Temperature 98.1 F Temperature 98.2 F Temperature 98.6 F Temperature 98.2 F Temperature 98.2 F Results - Labs CBC & Chem 7: 05/08/21 06:58 05/08/21 06:58 Labs: Abnormal lab results 05/07/21 05/07/21 05/08/21 Range/Units 14:45 22:23 06:58 WBC 12.2 H (4.5-11.0) K/mm3 Potassium (3.6-5.0) mmol/L BUN (9-20) mg/dL Creatinine (0.8-1.3) mg/dL Glucose (75-100) mg/dL POC Glucose 149 H 148 H (70-105) mg/dL 05/08/21 05/08/21 05/08/21 Range/Units 06:58 07:40 11:35 WBC (4.5-11.0) K/mm3 Potassium 3.2 L (3.6-5.0) mmol/L BUN 4 L (9-20) mg/dL Creatinine 0.5 L (0.8-1.3) mg/dL Glucose 152 H (75-100) mg/dL POC Glucose 179 H 170 H (70-105) mg/dL - Imaging and Cardiology CT scan - pelvis: report reviewed, image reviewed (R groin region with inflammatory process, some gas seen in soft tissues) Assessment and Plan Cultures: 05/05/2021 blood culture: No growth 05/07/2021 deep wound culture from OR: In process A/P: 65-year-old male with diabetes mellitus, obesity admitted with: #Sepsis, secondary to right groin necrotizing infection, abscess: Status post I&D in the OR on 05/07/2021 #DM uncontrolled #Obesity Recs: Empiric ceftriaxone, Flagyl, vancomycin (target trough between 10 to 20 mcg/mL) Follow-up OR cultures to help decide outpatient antibiotic therapy Continue glycemic control and wound care Yuly Pitts MD, FACP [facility] ([facility] O: [phone] F: [phone]
[2021-05-08] MEDS: VANCOMYCIN 1,750 MG in SODIUM CHLORIDE 0.9% 500 ML 500 ML IV SCH (22:00)
[2021-05-09] MEDS: HEPARIN 5,000 UNIT/1 ML VIAL SUB-Q SCH ×3 (06:14→21:25)
[2021-05-09] MEDS: metroNIDAZOLE/NS 500 MG/100 ML 500 MG/100 ML BAG IV SCH ×2 (06:15→16:56)
[2021-05-09 07:52] LABS: Basophils # (Auto) 0.1 K/mm3 (0.0-0.1); Basophils % (Auto) 0.6 % (0.0-1.8); Eosinophils # (Auto) 0.2 K/mm3 (0.0-0.4); Eosinophils % (Auto) 1.6 % (0.0-4.3); Hematocrit 37.7 % (35.5-45.6); Lymphocytes # (Auto) 2.3 K/mm3 (1.2-5.4); Lymphocytes % (Auto) 21.6 % (13.4-35.0); Mean Corpuscular HGB Conc 35 % (32-34); Mean Corpuscular Volume 93 fl (84-94); Monocytes # (Auto) 1.3 K/mm3 (0.0-0.8); Monocytes % (Auto) 12.4 % (0.0-7.3); Platelet Count 284 K/mm3 (140-440); Red Blood Count 4.06 M/mm3 (3.65-5.03); Red Cell Distribution Width 13.2 % (13.2-15.2)
[2021-05-09] MEDS: INSULIN REGULAR, HUMAN 100 UNITS/1 ML SUB-Q SCH ×4 (08:58→21:34)
[2021-05-09 09:08] LABS: Blood Urea Nitrogen 5 mg/dL (9-20); Calcium 9.4 mg/dL (8.4-10.2); Hemolysis Index 13
[2021-05-09 09:38] LABS: BUN/Creatinine Ratio 8
[2021-05-09] MEDS: amLODIPine 10 MG TAB PO SCH (10:20)
[2021-05-09] MEDS: cefTRIAXone/NS 2 GM/100 ML 2 GM/100 ML BAG IV SCH (10:20)
[2021-05-09] MEDS: levETIRAcetam 500 MG TAB PO SCH ×2 (10:20→21:25)
[2021-05-09] MEDS: VANCOMYCIN 1,750 MG in SODIUM CHLORIDE 0.9% 500 ML 500 ML IV SCH ×2 (12:32→21:25)
--- NOTE | 2021-05-09 13:34 | Progress Note ---
Assessment and Plan Cultures: 05/05/2021 blood culture: No growth 05/07/2021 deep wound culture from OR: In process A/P: 65-year-old male with diabetes mellitus, obesity admitted with: #Sepsis, secondary to right groin necrotizing infection, abscess: Status post I&D in the OR on 05/07/2021. #DM uncontrolled #Obesity Recs: continue ceftriaxone, Flagyl, vancomycin (target trough between 10 to 20 mcg/mL) Follow-up OR cultures to help decide outpatient antibiotic therapy Continue glycemic control and wound care outpatient If cultures negative, tomorrow, can discharge on p.o. Augmentin 875 mg twice daily plus p.o. doxycycline 100 mg twice daily to complete total 14 days Yuly Pitts MD, FACP [facility] ([facility] O: [phone] F: [phone] Subjective Date of service: 05/09/21 Interval history: No fever. Has no complaints. No vomiting, tolerating abx. Objective - Exam Narrative Exam: Physical Exam: Constitutional: Alert, cooperative. No acute distress Head, Ears, Nose: Normocephalic, atraumatic. External ears, nose normal Eyes: Conjunctivae/corneas clear. No icterus. No ptosis. Neck: Supple, no meningeal signs Cardiovascular: S1, S2 normal. Respiratory: Good air entry, clear to auscultation bilaterally GI: Soft, non-tender; bowel sounds normal. No peritoneal signs Musculoskeletal: Right groin dressing present, tenderness around it with mild induration Skin: No rash. Hem/Lymphatic: No palpable cervical or supraclavicular nodes. No lymphangitis Psych: Mood ok. Affect normal Neurological: Awake, alert, oriented. No gross abnormality - Constitutional Vitals: Vital Signs Temp Pulse Resp BP Pulse Ox 97.9 F 71 22 168/90 96 05/09/21 12:14 05/09/21 12:14 05/09/21 12:14 05/09/21 12:14 05/09/21 12:14 Temperature -Last 24 Hours Temperature 97.9 F Temperature 98.1 F Temperature 98.6 F Temperature 98.5 F - Labs CBC & Chem 7: 05/09/21 07:26 05/09/21 07:26 Labs: Abnormal lab results 05/08/21 05/08/2121 Range/Units 16:25 21:26 07:24 MCHC (32-34) % [place] % (Auto) (0.0-7.3) % [place] # (Auto) (0.0-0.8) K/mm3 BUN (9-20) mg/dL Creatinine (0.8-1.3) mg/dL Glucose (75-100) mg/dL POC Glucose 142 H 165 H 163 H (70-105) mg/dL 05/09/21 05/09/21 05/09/21 Range/Units 07:26 07:26 12:12 MCHC 35 H (32-34) % [place] % (Auto) 12.4 H (0.0-7.3) % [place] # (Auto) 1.3 H (0.0-0.8) K/mm3 BUN 5 L (9-20) mg/dL Creatinine 0.6 L (0.8-1.3) mg/dL Glucose 157 H (75-100) mg/dL POC Glucose 146 H (70-105) mg/dL
--- NOTE | 2021-05-09 14:44 | Progress Note ---
Assessment and Plan Assessment and plan: 55-year-old -Greenland[place] male with known history of diabetes mellitus presenting to the emergency room today complaining of right inguinal swelling. Swelling has been ongoing for the past 4 days and has been getting progressive. He denies any fever or chills, no chest pain or shortness of breath, no nausea vomiting, no abdominal pain, no hematuria or dysuria. Denies any injury or wound to the right groin. Denies any obvious drainage. Denies any scrotal swelling or pain and there is no penile discharge. Work-up in the emergency room today reveals leukocytosis of 24 and the rest of the lab is unremarkable. Pelvic CT reveals inflammatory process/cellulitis involving the right scrotum and right lower inguinal area. Patient is being admitted with cellulitis of the right inguinal region. 05/07: Patient continues to do well today. Continue antibiotics. ID consulted. Patient was seen by general surgery yesterday and part of recommendation includes "Will need I&D, debridement of right groin/perineum. Explained to patient that is likely a necrotizing infection which result in large open wound, multiple trips to OR, and pain. He understands and is agreeable to proceed with surgery. Consent obtained and patient to go to OR today as soon as possible. If scrotum is involved, he will need a urology consult." We will continue to follow and await further management plan. 05/08; status post incision and drainage of right groin abscess likely necrotizing fasciitis, patient is on IV Flagyl, ceftriaxone and vancomycin per ID recommendation. Surgery is following the patient. Blood sugar is in target. Continue current treatment for now. 05/09; patient does not have any fever. Patient does not have any pain and doing well. Continue with IV antibiotics for now. Cultures are negative so far. Patient was seen by ID and if cultures are negative by tomorrow patient can be discharged with Augmentin and doxycycline for 2 weeks. (1) Abscess or cellulitis of groin ?Narcotizing fasciitis Current Visit: Yes Status: Acute (2) Diabetes mellitus Current Visit: Yes Status: Acute (3) Hypokalemia (5) DVT prophylaxis Current Visit: Yes Status: Acute (6) Full code status Current Visit: Yes Status: Acute History Interval history: Patient was seen and evaluated this morning Patient said he did not have any pain No complaints Hospitalist Physical - Physical exam Narrative exam: Not in cardiopulmonary distress. The patient appeared well nourished and normally developed. Vital signs as documented. Head exam is unremarkable. No scleral icterus . Neck is without jugular venous distension, thyromegaly, or carotid bruits. Lungs are clear to auscultation. Cardiac exam reveals regular rate and Rhythm. Abdominal exam reveals normal bowel sounds, nontender, no organomegaly. Status post incision and drainage of right groin abscess Extremities are nonedematous and both femoral and pedal pulses are normal. EDUCATION LIAISON: Alert and oriented 3. No focal weakness. - Constitutional Vitals: Temp Pulse Resp BP Pulse Ox 97.9 F 71 22 168/90 96 05/09/21 12:14 05/09/21 12:14 05/09/21 12:14 05/09/21 12:14 05/09/21 12:14 General appearance: Present: no acute distress, well-nourished Results - Labs CBC & Chem 7: 05/09/21 07:26 05/09/21 07:26 Labs: Laboratory Last Values WBC 10.6 K/mm3 (4.5-11.0) 05/09/21 07:26 RBC 4.06 M/mm3 (3.65-5.03) 05/09/21 07:26 Hgb 13.0 gm/dl (11.8-15.2) 05/09/21 07:26 Hct 37.7 % (35.5-45.6) 05/09/21 07:26 MCV 93 fl (84-94) 05/09/21 07:26 MCH 32 pg (28-32) 05/09/21 07:26 MCHC 35 % (32-34) H 05/09/21 07:26 RDW 13.2 % (13.2-15.2) 05/09/21 07:26 Plt Count 284 K/mm3 (140-440) 05/09/21 07:26 Lymph % (Auto) 21.6 % (13.4-35.0) 05/09/21 07:26 Callahan % (Auto) 12.4 % (0.0-7.3) H 05/09/21 07:26 Eos % (Auto) 1.6 % (0.0-4.3) 05/09/21 07:26 Baso % (Auto) 0.6 % (0.0-1.8) 05/09/21 07:26 Lymph # (Auto) 2.3 K/mm3 (1.2-5.4) 05/09/21 07:26 Callahan # (Auto) 1.3 K/mm3 (0.0-0.8) H 05/09/21 07:26 Eos # (Auto) 0.2 K/mm3 (0.0-0.4) 05/09/21 07:26 Baso # (Auto) 0.1 K/mm3 (0.0-0.1) 05/09/21 07:26 Seg Neutrophils % 63.8 % (40.0-70.0) 05/09/21 07:26 Seg Neutrophils # 6.8 K/mm3 (1.8-7.7) 05/09/21 07:26 PT 13.1 Sec. (12.2-14.9) 05/06/21 07:53 INR 0.93 (0.87-1.13) 05/06/21 07:53 Sodium 140 mmol/L (137-145) 05/09/21 07:26 Potassium 3.7 mmol/L (3.6-5.0) 05/09/21 07:26 Chloride 102.2 mmol/L (98-107) 05/09/21 07:26 Carbon Dioxide 25 mmol/L (22-30) 05/09/21 07:26 Anion Gap 17 mmol/L 05/09/21 07:26 BUN 5 mg/dL (9-20) L 05/09/21 07:26 Creatinine 0.6 mg/dL (0.8-1.3) L 05/09/21 07:26 Estimated GFR > 60 ml/min 05/09/21 07:26 BUN/Creatinine Ratio 8 % 05/09/21 07:26 Glucose 157 mg/dL (75-100) H 05/09/21 07:26 POC Glucose 146 mg/dL (70-105) H 05/09/21 12:12 Hemoglobin A1c 7.4 % (4-6) H 05/07/21 06:50 Lactic Acid 1.20 mmol/L (0.7-2.0) 05/05/21 21:27 Calcium 9.4 mg/dL (8.4-10.2) 05/09/21 07:26 Total Bilirubin 0.50 mg/dL (0.1-1.2) 05/05/21 17:56 AST 31 units/L (5-40) 05/05/21 17:56 ALT 44 units/L (7-56) 05/05/21 17:56 Alkaline Phosphatase 139 units/L (35-129) H 05/05/21 17:56 Total Protein 7.4 g/dL (6.3-8.2) 05/05/21 17:56 Albumin 4.1 g/dL (3.9-5) 05/05/21 17:56 Albumin/Globulin Ratio 1.2 % 05/05/21 17:56 Urine Color Yellow (Yellow) 05/05/21 Unknown Urine Turbidity Clear (Clear) 05/05/21 Unknown Urine pH 5.0 (5.0-7.0) 05/05/21 Unknown Ur Specific Fulda 1.035 (1.003-1.030) H 05/05/21 Unknown Urine Protein 100 mg/dl mg/dL (Negative) 05/05/21 Unknown Urine Glucose (UA) Neg mg/dL (Negative) 05/05/21 Unknown Urine Ketones 20 mg/dL (Negative) 05/05/21 Unknown Urine Blood Mod (Negative) 05/05/21 Unknown Urine Nitrite Neg (Negative) 05/05/21 Unknown Urine Bilirubin Neg (Negative) 05/05/21 Unknown Urine Urobilinogen 2.0 mg/dL (<2.0) 05/05/21 Unknown Ur Leukocyte Esterase Neg (Negative) 05/05/21 Unknown Urine WBC (Auto) 1.0 /HPF (0.0-6.0) 05/05/21 Unknown Urine RBC (Auto) 2.0 /HPF (0.0-6.0) 05/05/21 Unknown Urine Mucus Few /HPF 05/05/21 Unknown Vancomycin Trough 9.9 ug/mL (5.0-20.0) 05/08/21 06:58 Microbiology: Microbiology 05/05/21 18:04 Peripheral/Venous Blood Culture - Preliminary NO GROWTH AFTER 72 HOURS 05/05/21 17:56 Peripheral/Venous Blood Culture - Preliminary NO GROWTH AFTER 72 HOURS 05/07/21 Unknown Groin Surgical Culture - Preliminary Stokes/IV: Voiding Method Urinal Active Medications - Current Medications Current Medications: Generic Name Dose Route Start Last Admin Trade Name Freq PRN Reason Stop Dose Admin Acetaminophen 650 mg 05/05/21 21:48 Acetaminophen 325 Mg Tab PO Q4H PRN Pain MILD(1-3)/Fever >100.5/MYERS Amlodipine Besylate 10 mg 05/08/21 13:30 05/09/21 10:20 Amlodipine 10 Mg Tab PO 10 mg DAILY SUNDAR Administration Dextrose 0 ml 05/05/21 21:46 Dextrose 50% In Water (25gm) 50 Ml Syringe IV Q30MIN PRN Hypoglycemia Protocol Heparin Sodium (Porcine) 5,000 unit 05/05/21 22:00 05/09/21 06:14 Heparin 5,000 Unit/1 Ml Vial SUB-Q 5,000 unit Q8HR SUNDAR Administration Hydralazine HCl 5 mg 05/07/21 15:25 05/07/21 15:30 Hydralazine 20 Mg/1 Ml Inj IV 5 mg Q30MIN PRN Administration Hypertension Ceftriaxone Sodium 2 gm in 100 mls @ 200 mls/hr 05/07/21 15:00 05/09/21 10:20 Rocephin/Ns 2 Gm/100 Ml IV 200 mls/hr Q24HR SUNDAR Administration Protocol Metronidazole 500 mg in 100 mls @ 100 mls/hr 05/07/21 15:00 05/09/21 06:15 Flagyl 500 Mg/100 Ml IV 100 mls/hr Q8H SUNDAR Administration Protocol Vancomycin HCl 1,750 mg/ 535 mls @ 333.333 mls/hr 05/08/21 22:00 05/09/21 12:32 Sodium Chloride IV 333.333 mls/hr Q12HR SUNDAR Administration Insulin Human Regular 0 units 05/05/21 22:00 05/09/21 12:32 Insulin Regular, Human 100 Units/1 Ml SUB-Q Not Given ACHS SUNDAR Protocol Levetiracetam 500 mg 05/08/21 13:00 05/09/21 10:20 Levetiracetam 500 Mg Tab PO 500 mg BID SUNDAR Administration Magnesium Hydroxide 30 ml 05/05/21 21:46 Magnesium Hydroxide (Mom) Oral Liqd Udc PO Q4H PRN Constipation Morphine Sulfate 2 mg 05/05/21 21:46 05/08/21 10:22 Morphine 2 Mg/1 Ml Inj IV 2 mg Q4H PRN Administration Pain , Severe (7-10) Ondansetron HCl 4 mg 05/05/21 21:48 05/08/21 10:19 Ondansetron 4 Mg/2 Ml Inj IV 4 mg Q8H PRN Administration Nausea And Vomiting Oxycodone/Acetaminophen 1 tab 05/05/21 21:48 05/08/21 13:42 Oxycodone /Acetaminophen 5-325mg Tab PO 1 tab Q6H PRN Administration Pain, Moderate (4-6) Sodium Chloride 10 ml 05/05/21 22:00 05/09/21 10:21 Sodium Chloride 0.9% 10 Ml Flush Syringe IV 10 ml BID SUNDAR Administration Sodium Chloride 10 ml 05/05/21 21:48 Sodium Chloride 0.9% 10 Ml Flush Syringe IV PRN PRN LINE FLUSH Sodium Hypochlorite 1 applic 05/09/21 10:00 Sodium Hypochlorite, Dakin's 1/2 Strength (0.25%) 473 Ml Topical Soln TP DAILY SUNDAR Nutrition/Malnutrition Assess - Dietary Evaluation Nutrition/Malnutrition Findings: Nutrition Notes Start: 05/06/21 12:2 5 Freq: Status: Active Protocol: Document 05/08/21 16:56 CW (Rec: 05/08/21 16:59 CW [id number]) Nutrition Notes Initial or Follow up Reassessment Other Pertinent Diagnosis abscess or cellulitis of groin Current Diet Consistent CHO Labs/Tests K 3.2 BG 152 Pertinent Medications Humulin Zofran Kdur Height 5 ft 9 in Weight 104.326 kg [place] Body Weight (kg) 72.72 BMI 34.0 Intake Prior to Admission Fair Weight Status Obese Subjective/Other Information Pt tdenies having questions regarding education provided. Pt also reports consuming 50% of meals and a returning appetite. ONS not ordered, will reorder Percent of energy/protein needs met: 45%/64% Burn Absent Trauma Absent GI Symptoms None Current % PO Poor (25-49%) Minimum of two criteria No Interpretation of Weight Loss (non- 1-2% in 1 week severe) #2 Nutrition Diagnosis Food and nutrition-related knowledge deficit Diagnosis Progress(for reassessment Resolved documentation) #1 Nutrition Diagnosis Inadequate oral intake Diagnosis Progress(for reassessment Continues documentation) Is patient on ventilator? No Is Patient Ambulatory and/or Out of Bed No REE-([facility]-confined to bed) 0953.384 Calculation Used for Recommendations Kcal/kg Additional Notes Protein: (0.8-1g/kg AdjBW: 89kg) 71-89g Fluid: 1 ml/kcal Nutrition Intervention Change Diet Order: continue Add Supplement/Snack (indicate name/kcal Glucerna BID /protein ) Provides kCal: 440 Provides Protein (gm) 20 Goal #1 Meet at least 75% of energy and protein needs via PO and ONS Anticipated Discharge Needs: consistent CHO Follow-Up By: 05/11/21 Additional Comments F/U for intakes and ONS tolerance
[2021-05-09] MEDS: SODIUM HYPOCHLORITE, DAKIN'S 1/2 STRENGTH (0.25%) 473 ML TOPICAL SOLN TP SCH (17:51)
[2021-05-09] MEDS: oxyCODONE /ACETAMINOPHEN 5-325MG TAB PO PRN (20:28)
[2021-05-10] MEDS: metroNIDAZOLE/NS 500 MG/100 ML 500 MG/100 ML BAG IV SCH ×2 (00:13→12:25)
[2021-05-10] MEDS: HEPARIN 5,000 UNIT/1 ML VIAL SUB-Q SCH (06:19)
--- NOTE | 2021-05-10 08:48 | Discharge Summary ---
Providers - Providers Date of Admission: 05/05/21 21:48 Date of discharge: 05/10/21 Attending physician: DOMINIC DUMONT MD 05/05/21 21:46 Consult to Dietitian/Nutrition [CONS] Routine Physician Instructions: Reason For Exam: Reason for Consult: Diet education Consult to Physician [CONS] Routine Comment: Consulting Provider: HERMES LUCIO Physician Instructions: Reason For Exam: Cellulitis/Abscess right Groin 05/06/21 13:02 Consult to Wound/ET Nurse [CONS] Routine Reason For Exam: wound eval 05/07/21 09:01 Consult to Physician [CONS] Routine Comment: Consulting Provider: FERNANDA CARDENAS Physician Instructions: Reason For Exam: necrotizing faciaties Primary care physician: HE[employer] ASSEMBLY SUPERVISOR Hospitalization Reason for admission: Necrotizing fasciitis, uncontrolled hypertension Condition: Stable Procedures: Incision and drainage of the abscess Hospital course: History of present illness: 55-year-old -[place] male with known history of diabetes mellitus presenting to the emergency room today complaining of right inguinal swelling. Swelling has been ongoing for the past 4 days and has been getting progressive. He denies any fever or chills, no chest pain or shortness of breath, no nausea vomiting, no abdominal pain, no hematuria or dysuria. Denies any injury or wound to the right groin. Denies any obvious drainage. Denies any scrotal swelling or pain and there is no penile discharge. Work-up in the emergency room today reveals leukocytosis of 24 and the rest of the lab is unremarkable. Pelvic CT reveals inflammatory process/cellulitis involving the right scrotum and right lower inguinal area. Patient is being admitted with cellulitis of the right inguinal region. Hospital course 05/07: Patient continues to do well today. Continue antibiotics. ID consulted. Patient was seen by general surgery yesterday and part of recommendation includes "Will need I&D, debridement of right groin/perineum. Explained to patient that is likely a necrotizing infection which result in large open wound, multiple trips to OR, and pain. He understands and is agreeable to proceed with surgery. Consent obtained and patient to go to OR today as soon as possible. If scrotum is involved, he will need a urology consult." We will continue to follow and await further management plan. 05/08; status post incision and drainage of right groin abscess likely necrotizing fasciitis, patient is on IV Flagyl, ceftriaxone and vancomycin per ID recommendation. Surgery is following the patient. Blood sugar is in target. Continue current treatment for now. 05/09; patient does not have any fever. Patient does not have any pain and doing well. Continue with IV antibiotics for now. Cultures are negative so far. Patient was seen by ID and if cultures are negative by tomorrow patient can be discharged with Augmentin and doxycycline for 2 weeks. (1) Abscess or cellulitis of groin ?Narcotizing fasciitis Current Visit: Yes Status: Acute (2) Diabetes mellitus Current Visit: Yes Status: Acute (3) Hypokalemia (5) DVT prophylaxis Current Visit: Yes Status: Acute (6) Full code status Current Visit: Yes Status: Acute. Patient was seen and evaluated this morning, patient does not have any pain. Patient was seen by general surgery and incision and drainage of the abscess was done. Surgery cleared him for discharge with wound care. I discussed with case management to arrange follow-up wound care. Infectious disease saw the patient and was treated with IV Vanco, Flagyl and ceftriaxone while inpatient. Cultures are negative and I did recommend to discharge the patient with doxycycline and Augmentin for a total of 14 days. Patient's blood pressure was uncontrolled and I added hydralazine on his medication regimens. Patient was hemodynamically stable at the time of discharge. Appropriate medications were given at the time of discharge. Disposition: DC-30 STILL A PATIENT Final Discharge Diagnosis (Prints w/discharge instructions): Necrotizing fasciitis. Uncontrolled hypertension Time spent for discharge: 45-minutes - Discharge Diagnoses (1) Uncontrolled hypertension Status: Acute (2) Abscess of right groin Status: Acute (3) Abscess or cellulitis of groin Status: Acute (4) Diabetes mellitus Status: Chronic Core Measure Documentation - Palliative Care Palliative Care/ Comfort Measures: Not Applicable - Core Measures Any of the following diagnoses?: none Exam - Physical Exam Narrative exam: Not in cardiopulmonary distress. The patient appeared well nourished and normally developed. Vital signs as documented. Head exam is unremarkable. No scleral icterus . Neck is without jugular venous distension, thyromegaly, or carotid bruits. Lungs are clear to auscultation. Cardiac exam reveals regular rate and Rhythm. Abdominal exam reveals normal bowel sounds, nontender, no organomegaly. Status post incision and drainage of right groin abscess Extremities are nonedematous and both femoral and pedal pulses are normal. AGRONOMY PROFESSOR: Alert and oriented 3. No focal weakness. - Constitutional Vitals: Temp Pulse Resp BP Pulse Ox 98.3 F 68 20 160/76 95 05/10/21 04:12 05/10/21 04:12 05/10/21 04:12 05/10/21 04:12 05/10/21 04:12 Plan Activity: no restrictions Weight Bearing Status: Full Weight Bearing Diet: low salt, diabetic Additional Instructions: Scheduled at wound care clinic on May 21 Follow up with: PRIMARY CARE, [Primary Care Provider] - 7 Days Prescriptions: hydrALAZINE [Apresoline TAB] 50 mg PO Q8HR #90 tablet Amoxicillin/K Clav Tab [Augmentin 875 mg] 1 tab PO Q12HR #22 tab Doxycycline Hyclate [Doxycycline Hyclate TAB] 100 mg PO Q12HR #22 tab
[2021-05-10] MEDS: INSULIN REGULAR, HUMAN 100 UNITS/1 ML SUB-Q SCH ×2 (10:01→12:20)
[2021-05-10] MEDS: amLODIPine 10 MG TAB PO SCH (11:40)
[2021-05-10] MEDS: cefTRIAXone/NS 2 GM/100 ML 2 GM/100 ML BAG IV SCH (11:40)
[2021-05-10] MEDS: levETIRAcetam 500 MG TAB PO SCH (11:41)
[2021-05-10] MEDS: SODIUM HYPOCHLORITE, DAKIN'S 1/2 STRENGTH (0.25%) 473 ML TOPICAL SOLN TP SCH (11:42)
[2021-05-10] MEDS: hydrALAZINE 25 MG TAB PO SCH (11:54)
--- NOTE | 2021-05-10 12:49 | Progress Note ---
Assessment and Plan Cultures: 05/05/2021 blood culture: No growth 05/07/2021 deep wound culture from OR: no growth A/P: 65-year-old male with diabetes mellitus, obesity admitted with: #Sepsis, secondary to right groin necrotizing infection, abscess: Status post I&D in the OR on 05/07/2021. #DM uncontrolled #Obesity Recs: Continue glycemic control and wound care outpatient Cultures with no growth, hence discharge on p.o. Augmentin 875 mg twice daily plus p.o. doxycycline 100 mg twice daily to complete total 14 days ID clinic follow up PRN (contact info given to patient) Yuly Pitts MD, FACP [facility], [place] O: [phone] F: [phone] Subjective Date of service: 05/10/21 Interval history: No fever. Has no complaints. No vomiting, tolerating abx. Objective - Exam Narrative Exam: Physical Exam: Constitutional: Alert, cooperative. No acute distress Head, Ears, Nose: Normocephalic, atraumatic. External ears, nose normal Eyes: Conjunctivae/corneas clear. No icterus. No ptosis. Neck: Supple, no meningeal signs Cardiovascular: S1, S2 normal. Respiratory: Good air entry, clear to auscultation bilaterally GI: Soft, non-tender; bowel sounds normal. No peritoneal signs Musculoskeletal: Right groin dressing present, tenderness around it with mild induration Skin: No rash. Hem/Lymphatic: No palpable cervical or supraclavicular nodes. No lymphangitis Psych: Mood ok. Affect normal Neurological: Awake, alert, oriented. No gross abnormality - Constitutional Vitals: Vital Signs Temp Pulse Resp BP Pulse Ox 98.3 F 68 20 160/76 95 05/10/21 04:12 05/10/21 04:12 05/10/21 04:12 05/10/21 04:12 05/10/21 04:12 Temperature -Last 24 Hours Temperature 98.3 F Temperature 98.6 F Temperature 98.5 F - Labs CBC & Chem 7: 05/09/21 07:26 05/09/21 07:26 Labs: Abnormal lab results 05/09/21 05/09/21 05/10/21 Range/Units 17:28 21:13 08:06 POC Glucose 239 H 127 H 176 H (70-105) mg/dL 05/10/21 Range/Units 11:52 POC Glucose 188 H (70-105) mg/dL
[2021-05-10 13:16] VITALS: BP 158/90
== END 2021-05-10 16:57 | disposition home health service (06) | DRG 853 ==
LOC: ED 15:37 → 3A 21:48
PROVIDERS: ADMIT Internal Medicine Geriatric Medicine; ATTEND Internal Medicine
PROC: 0J9C0ZZ Drainage of Pelvic Region Subcutaneous Tissue and Fascia, Open Approach (ICD-10-PCS; principal; 2021-05-07)
DX: A41.9 Sepsis, unspecified organism (principal); M72.6 Necrotizing fasciitis; L02.214 Cutaneous abscess of groin; E87.6 Hypokalemia; E11.9 Type 2 diabetes mellitus without complications; E66.9 Obesity, unspecified; N49.2 Inflammatory disorders of scrotum; Z79.899 Other long term (current) drug therapy; Z68.34 Body mass index [BMI] 34.0-34.9, adult
CPT/HCPCS: 36415; 72193; 80048; 80053; 80202; 81001; 82140; 82962; 83036; 85025; 85027; 85610; 87040; 87075; 87116; G0378; A6260; J0360; J0696; J1170; J1644; J1815; J1885; J2270; J2405; J2543; J2704; J3370; J7030; J7040; Q9967